=== PATIENT | male | born 1950 | race Caucasian/White ===

== ENCOUNTER → 2017-09-14 | Outpatient (CLI) | payer OTHER | LOC: CARD 10:48 | DX: I47.1 Supraventricular tachycardia (principal); I08.3 Combined rheumatic disorders of mitral, aortic and tricuspid valves | CPT/HCPCS: 93306 ==

== ENCOUNTER 2019-10-10 18:55 | Observation (INO) | payer MEDICARE, OTHER ==
[~2019-10-10] VITALS: Ht 172.7 cm; Wt 81.6 kg
[2019-10-10] MEDS ORDERED: methylPREDNISolone 125 MG (Solu-MEDROL) VIAL IV STA (19:22)
[2019-10-10] MEDS ORDERED: RT-ALBUTEROL/IPRATROPIUM 3 ML (DUONEB) VIAL INH ONE (19:30)
[2019-10-10] MEDS ORDERED: CEFEPIME INJECTION 1,000 MG in WATER (STERILE) FOR INJECTION 10 ML IV ONE (19:30)
[2019-10-10] MEDS ORDERED: VANCOMYCIN INJECTION 1,000 MG in NS (IVPB) 250 ML IV ONE (19:30)
[2019-10-10 19:32] LABS: BASOPHILS % (AUTO) 0 % (0-10); EOSINOPHILS # (AUTO) 0.5 10^3/uL (0.0-0.3); EOSINOPHILS % (AUTO) 4 % (0-10); HEMATOCRIT 41 % (40-54); LYMPHOCYTES # (AUTO) 2.1 X 10^3 (1.0-4.0); LYMPHOCYTES % (AUTO) 18 % (12-44); MEAN CORPUSCULAR HEMOGLOBIN 29 PG (25-34); MEAN CORPUSCULAR HGB CONC 31 G/DL (32-36); MEAN CORPUSCULAR VOLUME 93 FL (80-99); MEAN PLATELET VOLUME 9.1 FL (7.4-10.4); MONOCYTES # (AUTO) 0.9 X 10^3 (0.0-1.0); MONOCYTES % (AUTO) 8 % (0-12); NEUTROPHILS # (AUTO) 8.1 X 10^3 (1.8-7.8); NEUTROPHILS % (AUTO) 70 % (42-75); PLATELET COUNT 314 10^3/uL (130-400); RED CELL DISTRIBUTION WIDTH 14.9 % (10.0-14.5); WHITE BLOOD COUNT 11.7 10^3/uL (4.3-11.0)
[2019-10-10] MEDS ORDERED: NS IV 500 ML 500 ML IV ONE (19:34)
[2019-10-10] MEDS: NS IV 1000 ML 1,000 ML IV SCH ×2 (19:35→19:39)
[2019-10-10 19:44] LABS: ALANINE AMINOTRANSFERASE 17 U/L (0-55); ALBUMIN 4.6 GM/DL (3.2-4.5); ALKALINE PHOSPHATASE 76 U/L (40-136); BILIRUBIN,TOTAL 0.5 MG/DL (0.1-1.0); BUN/CREATININE RATIO 8; CARBON DIOXIDE 30 MMOL/L (21-32); CHLORIDE 97 MMOL/L (98-107); CREATININE SERUM 1.78 MG/DL (0.60-1.30); GFR ESTIMATED 38; GLUCOSE 126 MG/DL (70-105); POTASSIUM 3.7 MMOL/L (3.6-5.0); SODIUM 140 MMOL/L (135-145); TOTAL PROTEIN 8.1 GM/DL (6.4-8.2)
[2019-10-10 19:44] LABS: ABG BASE EXCESS 5.8 MMOL/L (-2.5-2.5); ABG OXYGEN SATURATION 100 % (94-100); ABG PCO2 35 MMHG (35-45); ABG PH 7.53 (7.37-7.43); ABG PO2 138 MMHG (79-93); ABG TCO2 30.1 MMOL/L (21.0-31.0); ALLENS TEST YES-POS; INSPIRED O2 3L; PATIENT TEMP 97.1; VENTILATOR NO
[2019-10-10 19:47] LABS: BILIRUBIN,URINE NEGATIVE (NEGATIVE); CLARITY,URINE CLEAR; COLOR,URINE YELLOW; GLUCOSE, URINE (UA) NEGATIVE (NEGATIVE); KETONES,URINE NEGATIVE (NEGATIVE); LEUKOCYTE ESTERASE ,URINE NEGATIVE (NEGATIVE); NITRITE,URINE NEGATIVE (NEGATIVE); PROTEIN,URINE NEGATIVE (NEGATIVE)
[2019-10-10 19:56] LABS: INR 1.1 (0.8-1.4); PROTHROMBIN TIME PATIENT 14.4 SEC (12.2-14.7)
--- NOTE | 2019-10-10 19:57 | Diagnostic Imaging Report ---
EXAMINATION: Portable chest. INDICATION: Shortness of breath. FINDINGS: There is enlargement of the cardiac silhouette. An implantable cardiac defibrillator device is present. There are no current findings to suggest pulmonary edema or failure. There appear to be chronic interstitial changes within the lungs as there is oligemia within the upper lung zones. There is no focal infiltrate or evidence of an effusion. There also appears to be diaphragmatic flattening suggesting air trapping. IMPRESSION: 1. Probable background features of COPD. 2. Enlarged cardiac silhouette without current failure. 3. No findings of an acute superimposed cardiopulmonary process. Dictated by: Dictated on workstation # [id number]
[2019-10-10 20:04] LABS: BACTERIA,URINE TRACE /HPF
--- NOTE | 2019-10-10 20:13 | ED Respiratory ---
General Chief Complaint: Respiratory Problems Stated Complaint: SOB,HAS HEART HISTORY Source: patient, spouse Exam Limitations: no limitations History of Present Illness Date Seen by Provider: Oct 10, 2019 Time Seen by Provider: 19:42 Initial Comments Patient presents to ER with his with chief complaint that he was feeling short of breath having some wheezing [facility] come [facility]. He says in the past she's had several stents placed and his never had any chest pain. He's had a little chest discomfort and shortness of breath Sunday, 5 days ago and had to take nitroglycerin and aspirin. He has not had any since then. He says typically does not have chest pain when he has ne eded stents placed in the past. He is not having any more cough than usual. He denies any fever. He does not use any Tylenol or ibuprofen. He is not having a productive cough. He has a history of COPD, heart failure with an reduced EF. He says he takes metolazone and Lasix 40 mg twice a day. About once a week she says his weight will start arising he will take an extra half or one tablet of the metolazone and Lasix and that will correct. His base weight is 172 pounds. Today this morning it was 178 pounds so he did take an extra half a tablet of metolazone. He's noticed increased swelling in his feet. He is occasionally dependent on oxygen outpatient about 1-2 L. Allergies and Home Medications Allergies Coded Allergies: Penicillins (Verified Allergy, Unknown, 10/10/19) acetaminophen (Verified Allergy, Unknown, 10/10/19) gabapentin (Verified Allergy, Unknown, 10/10/19) lisinopril (Verified Allergy, Unknown, 10/10/19) simvastatin (Verified Allergy, Unknown, 10/10/19) varenicline (Verified Allergy, Unknown, 10/10/19) Patient Home Medication List Home Medication List Reviewed: Yes Review of Systems Review of Systems Constitutional: No chills, No fever EENTM: No hearing loss, No ear pain Respiratory: cough; No phlegm; short of breath, wheezing Cardiovascular: No chest pain; edema, Hx of Intervention; No palpitations; vascular heart diseas Gastrointestinal: No abdominal pain, No nausea, No vomiting Genitourinary: No discharge, No dysuria Musculoskeletal: No back pain, No joint pain All Other Systems Reviewed Negative Unless Noted: Yes Past Eemndkg-Vatxfj-Irzptd Hx Patient Social History Alcohol Use: Denies Use Recreational Drug Use: No Smoking Status: Former Smoker Type Used: Cigarettes Former Smoker, Quit: Sep 21, 2015 Recent Foreign Travel: No Contact w/Someone Who Travel: No Physical Exam Vital Signs - First Documented 10/10/19 19:03 Temp 36.3 Pulse 101 Resp 22 B/P (MAP) 115/78 (90) Pulse Ox 92 O2 Delivery Nasal Cannula O2 Flow Rate 2.00 Capillary Refill : Height: '" Weight: lbs. oz. kg; BMI Method: General Appearance: WD/WN, mild distress Eyes: Bilateral Eye Normal Inspection, Bilateral Eye PERRL, Bilateral Eye EOMI HEENT: PERRL/EOMI, normal ENT inspection, TMs normal, pharynx normal Neck: non-tender, full range of motion, supple, normal inspection Respiratory: lungs clear, normal breath sounds, no respiratory distress, no accessory muscle use Cardiovascular: normal peripheral pulses, regular rate, rhythm, no edema Extremities: normal range of motion, non-tender, normal inspection, no pedal edema, no calf tenderness, normal capillary refill Neurologic/Psychiatric: alert, normal mood/affect, oriented x 3 Skin: normal color, warm/dry Focused Exam Lactate Level 10/10/19 19:48: Lactic Acid Level 1.27 Lactic Acid Level Laboratory Tests Test 10/10/19 19:48 Lactic Acid Level 1.27 MMOL/L (0.50-2.00) Progress/Results/Core Measures Suspected Sepsis SIRS Temperature: Pulse: Respiratory Rate: Laboratory Tests 10/10/19 19:10: White Blood Count 11.7H Blood Pressure / Mean: 10/10/19 19:48: Lactic Acid Level 1.27 Laboratory Tests 10/10/19 19:10: Creatinine 1.78H, INR Comment 1.1, Platelet Count 314, Total Bilirubin 0.5 Results/Orders Lab Results Laboratory Tests Test 10/10/19 19:10 10/10/19 19:30 10/10/19 19:33 10/10/19 19:48 Range/Units White Blood Count 11.7 H 4.3-11.0 10^3/uL Red Blood Count 4.46 4.35-5.85 10^6/uL Hemoglobin 13.0 L 13.3-17.7 G/DL Hematocrit 41 40-54 % Mean Corpuscular Volume 93 80-99 FL Mean Corpuscular Hemoglobin 29 25-34 PG Mean Corpuscular Hemoglobin Concent 31 L 32-36 G/DL Red Cell Distribution Width 14.9 H 10.0-14.5 % Platelet Count 314 130-400 10^3/uL Mean Platelet Volume 9.1 7.4-10.4 FL Neutrophils (%) (Auto) 70 42-75 % Lymphocytes (%) (Auto) 18 12-44 % Monocytes (%) (Auto) 8 0-12 % Eosinophils (%) (Auto) 4 0-10 % Basophils (%) (Auto) 0 0-10 % Neutrophils # (Auto) 8.1 H 1.8-7.8 X 10^3 Lymphocytes # (Auto) 2.1 1.0-4.0 X 10^3 Monocytes # (Auto) 0.9 0.0-1.0 X 10^3 Eosinophils # (Auto) 0.5 H 0.0-0.3 10^3/uL Basophils # (Auto) 0.0 0.0-0.1 10^3/uL Prothrombin Time 14.4 12.2-14.7 SEC INR Comment 1.1 0.8-1.4 Activated Partial Thromboplast Time 34 24-35 SEC Sodium Level 140 135-145 MMOL/L Potassium Level 3.7 3.6-5.0 MMOL/L Chloride Level 97 L 98-107 MMOL/L Carbon Dioxide Level 30 21-32 MMOL/L Anion Gap 13 5-14 MMOL/L Blood Urea Nitrogen 14 7-18 MG/DL Creatinine 1.78 H 0.60-1.30 MG/DL Estimat Glomerular Filtration Rate 38 BUN/Creatinine Ratio 8 Glucose Level 126 H 70-105 MG/DL Calcium Level 10.0 8.5-10.1 MG/DL Corrected Calcium 8.5-10.1 MG/DL Total Bilirubin 0.5 0.1-1.0 MG/DL Aspartate Amino Transf (AST/SGOT) 22 5-34 U/L Alanine Aminotransferase (ALT/SGPT) 17 0-55 U/L Alkaline Phosphatase 76 40-136 U/L Troponin I 0.039 H <0.028 NG/ML C-Reactive Protein High Sensitivity 0.46 0.00-0.50 MG/DL B-Type Natriuretic Peptide 205.2 H <100.0 PG/ML Total Protein 8.1 6.4-8.2 GM/DL Albumin 4.6 H 3.2-4.5 GM/DL Urine Color YELLOW Urine Clarity CLEAR Urine pH 6.0 5-9 Urine Specific Elsie 1.020 1.016-1.022 Urine Protein NEGATIVE NEGATIVE Urine Glucose (UA) NEGATIVE NEGATIVE Urine Ketones NEGATIVE NEGATIVE Urine Nitrite NEGATIVE NEGATIVE Urine Bilirubin NEGATIVE NEGATIVE Urine Urobilinogen 0.2 < = 1.0 MG/DL Urine Leukocyte Esterase NEGATIVE NEGATIVE Urine RBC (Auto) NEGATIVE NEGATIVE Urine RBC NONE /HPF Urine WBC NONE /HPF Urine Crystals NONE /LPF Urine Bacteria TRACE /HPF Urine Casts PRESENT /LPF Urine Hyaline Casts 2-5 H /LPF Urine Mucus NEGATIVE /LPF Urine Culture Indicated NO Blood Gas Puncture Site LEFT RADIAL Blood Gas Patient Temperature 97.1 Arterial Blood pH 7.53 H 7.37-7.43 Arterial Blood Partial Pressure CO2 35 35-45 MMHG Arterial Blood Partial Pressure O2 138 H 79-93 MMHG Arterial Blood HCO3 29 H 23-27 MMOL/L Arterial Blood Total CO2 30.1 21.0-31.0 MMOL/L Arterial Blood Oxygen Saturation 100 94-100 % Arterial Blood Base Excess 5.8 H -2.5-2.5 MMOL/L Earle Test YES-POS Blood Gas Ventilator Setting NO Blood Gas Inspired Oxygen 3L Lactic Acid Level 1.27 0.50-2.00 MMOL/L Micro Results Microbiology 10/10/19 Influenza Types A,B Antigen (SAGE) - Final, Complete My Orders Orders - GRANT CASTELLON Cbc With Automated Diff (10/10/19 19:22) Comprehensive Metabolic Panel (10/10/19 19:22) Blood Culture (10/10/19 19:22) Sputum Culture (10/10/19 19:22) Urinalysis (10/10/19 19:22) Urine Culture (10/10/19 19:22) Protime With Inr (10/10/19:) Partial Thromboplastin Time (10/10/19 19:22) Chest 1 View, Ap/Pa Only (10/10/19 19:22) Ed Iv/Invasive Line Start (10/10/19 19:22) Ed Iv/Invasive Line Start (10/10/19 19:22) Vital Signs Adult Sepsis Patie Q15M (10/10/19 19:22) O2 (10/10/19 19:22) Remove Rings In Anticipation O (10/10/19:) Lactic Acid Analyzer (10/10/19:) Influenza A And B Antigens (10/10/19:22) Ns Iv 1000 Ml (Sodium Chloride 0.9%) (10/10/19 19:22) Cefepime Injection (Maxipime Injection) (10/10/19 19:30) Vancomycin Injection (Vancomycin Injecti (10/10/19 19:30) Albuterol/Ipra Inhalation Soln (Duoneb I (10/10/19:30) Methylprednisolone Sod Succ (Solu-Medrol (10/10/19:) Svn Small Volume Nebulizer (10/10/19:) Arterial Blood Gas (10/10/19:22) Ed Iv/Invasive Line Start (10/10/19 19:34) Ns Iv 500 Ml (Sodium Chloride 0.9%) (10/10/19 19:34) BNP (10/10/19 19:35) Hs C Reactive Protein (10/10/19 20:05) Troponin I (10/10/19 20:05) Continuous Ekg Monitoring (10/10/19 20:05) Ekg Tracing (10/10/19 20:05) Aspirin Enteric Coated Tablet (Ecotrin T (10/10/19 20:30) Aspirin Chewable Tablet (Baby Aspirin Ch (10/10/19 20:45) Furosemide Injection (Lasix Injection) (10/10/19 20:45) Medications Given in ED Current Medications Medications Dose Ordered Sig/Mabel Route Start Time Stop Time Status Last Admin Dose Admin Albuterol/ Ipratropium 3 ml ONCE ONCE INH 10/10/19 19:30 10/10/19 19:31 DC 10/10/19 19:36 3 ML Aspirin 324 mg ONCE ONCE PO 10/10/19 20:45 10/10/19 20:46 DC 10/10/19 21:03 324 MG Cefepime HCl 1000 mg/Sterile Water 10 ml @ 200 mls/hr ONCE ONCE IV 10/10/19 19:30 10/10/19 19:32 DC 10/10/19 20:24 200 MLS/HR Furosemide 40 mg ONCE ONCE IVP 10/10/19 20:45 10/10/19 20:46 DC 10/10/19 21:03 40 MG Vancomycin HCl 1000 mg/Sodium Chloride 250 ml @ 250 mls/hr ONCE ONCE IV 10/10/19 19:30 10/10/19 20:29 DC 10/10/19 20:25 250 MLS/HR Vital Signs/I&O 10/10/19 10/10/19 19:03 19:03 Temp 36.3 Pulse 101 Resp 22 B/P (MAP) 115/78 (90) Pulse Ox 92 92 O2 Delivery Nasal Cannula Nasal Cannula O2 Flow Rate 2.00 2.00 Capillary Refill : Progress Note : Time: 20:15 Progress Note Patient was not in severe distress on arrival in a timely get him to talk to him he revealed that in the past his anginal symptoms have been just shortness of breath so we are expanding her search for the source of his symptoms with an EKG and troponin. We'll also get a CRP. Original differential was COPD, pneumonia, bronchitis, acute congestive heart failure. Congestive heart failure seems unlikely with a BNP of 200 and no pedal edema. He does have significant crackles heard on the right base. After the DuoNeb he is no longer wheezy. His ABG supports alkalosis and he may have been hypoxic before we put him on oxygen which is what contributed to his alkalosis. Cefepime and vancomycin weight-based dosing. Septic workup as his heart rate was above 90 and his respiratory rate was right around 20-22. He's had no subjective or objective findings of fever. Plan to give him 1500 cc of fluids which would be 20 mils per kilogram. ECG Initial ECG Impression Date: Oct 10, 2019 Initial ECG Impression Time: 20:07 Initial ECG Rate: 90 Initial ECG Rhythm: Normal Sinus Initial ECG Intervals: Normal Initial ECG Impression: Normal, Nonspecific Changes Initial ECG Comparisson: No Previous ECG Available Comment Atrial sensed ventricularly paced rhythm without ST elevation or depression. Diagnostic Imaging Diagonstic Imaging: Xray Plain Films/CT/US/NM/MRI: chest (1v) Comments [facility] [place], [place] NAME: LORI CASTREJON [facility] REC#: [id number] PT STATUS: REG ER : 1950 PHYSICIAN: GRANT CASTELLON MD ADMIT DATE: 10/10/19/ER Signed Date of Exam:10/10/19 CHEST 1 VIEW, AP/PA ONLY EXAMINATION: Portable chest. INDICATION: Shortness of breath. FINDINGS: There is enlargement of the cardiac silhouette. An implantable cardiac defibrillator device is present. There are no current findings to suggest pulmonary edema or failure. There appear to be chronic interstitial changes within the lungs as there is oligemia within the upper lung zones. There is no focal infiltrate or evidence of an effusion. There also appears to be diaphragmatic flattening suggesting air trapping. IMPRESSION: 1. Probable background features of COPD. 2. Enlarged cardiac silhouette without current failure. 3. No findings of an acute superimposed cardiopulmonary process. Dictated by: Dictated on workstation # [id number] Dict: 10/10/191946 Trans: 10/10/191956 PJE [id number] Interpreted by: GISELLE GONSALEZ MD Electronically signed by: GISELLE GONSALEZ MD 10/10/191956 Reviewed: Reviewed by Me Departure Communication (Admissions) Time/Spoke to Admitting Phy: 20:[address] Taylor and he agrees with holding antibiotics and he will reevaluate in the morning. He agrees with the plan laid out by Dr. Rose. Time/Spoke to Consulting Phy: 20:[address] Rose and he agrees with consulting on the patient and having them observed by medicine team. He says Dr. Beebe will see the patient in the morning. He would like Lasix 40 mg tonight, repeat chest x-ray labs troponin in the morning. Aspirin tonight. Impression Primary Impression: Atypical angina Additional Impression: Congestive heart failure Qualified Codes: I50.9 - Heart failure, unspecified Disposition: ADMITTED INPATIENT Condition: Stable Admissions Decision to Admit Reason: Admit from ER (General) Decision to Admit/Date: Oct 10, 2019 Time/Decision to Admit Time: 20:30 Departure-Patient Inst. Referrals: NO,LOCAL PHYSICIAN (PCP/Family) Primary Care Physician GRANT CASTELLON Oct 10, 2019 20:13
[2019-10-10] MEDS ORDERED: ASPIRIN E.C. 81 MG (ECOTRIN) TAB PO ONE (20:30)
[2019-10-10] MEDS ORDERED: VANCOMYCIN INJECTION 750 MG in NS (IVPB) 250 ML IV ONE (20:30)
[2019-10-10] MEDS ORDERED: FUROSEMIDE 40 MG/4 ML INJ (LASIX) IVP ONE (20:45)
[2019-10-10] MEDS ORDERED: ASPIRIN 81 MG CHEW (CHILDREN'S ASA) PO ONE (20:45)
[2019-10-10 22:10] VITALS: BP 111/61
[2019-10-10] MEDS ORDERED: ONDANSETRON 4 MG/2 ML (SDV) Z0FRAN IV PRN (22:30)
[2019-10-10] MEDS ORDERED: NITROGLYCERIN 0.4 MG SL TABS BTL 25'S SL PRN (22:30)
[2019-10-10] MEDS ORDERED: LORazepam INJ 2 MG/ML (ATIVAN) VIAL IV PRN (22:30)
[2019-10-10] MEDS ORDERED: morphine INJ 4 MG/ML 1 ML (VIAL/SYRINGE) IV PRN (22:30)
--- NOTE | 2019-10-10 22:35 | NUR ---
LORI CASTREJON admitted to room 431-1, with an admitting diagnosis of ATYPICAL ANGINA AND CHF EXACERBATION, on 10/10/19 from ED via , accompanied by .LORI CASTREJON introduced to surroundings, call light, bed controls, phone, TV, temperature control, lights, meal times, smoking policy, visitor policy, side rail policy, bathrooms and showers. Patient Rights given to patient in the handbook. LORI CASTREJON verbalizes understanding that [facility] is not responsible for the loss or damage to any personal effects or valuables that are kept in the patients posession during their hospitalization. LORI CASTREJON verbalizes understanding of Interdisciplinary Patient Education. Patient and/or family were informed about the Rapid Response Team and its purpose.
[2019-10-11] VITALS (8 sets, daily range): BP systolic 100–141; BP diastolic 56–73
[2019-10-11] MEDS ORDERED: PANT40TA3 PO (01:43)
[2019-10-11] MEDS ORDERED: GLIP5TAB13 PO (01:43)
[2019-10-11] MEDS ORDERED: MTP100TCR PO (01:43)
[2019-10-11] MEDS ORDERED: DOCU100C37 PO (01:43)
[2019-10-11] MEDS ORDERED: ISOS30TA3 PO (01:43)
[2019-10-11] MEDS ORDERED: FURO40TA4 PO (01:43)
[2019-10-11] MEDS ORDERED: FLUT16SP22 NS (01:43)
[2019-10-11] MEDS ORDERED: METO2.5T PO (01:43)
[2019-10-11] MEDS ORDERED: ALLO300T2 PO (01:43)
[2019-10-11] MEDS ORDERED: APIX2.5T PO (01:43)
[2019-10-11] MEDS ORDERED: LEVA0.3129 IH (01:43)
[2019-10-11] MEDS ORDERED: DOXA2TAB2 PO (01:43)
[2019-10-11] MEDS ORDERED: ROSU40TA23 PO (01:43)
[2019-10-11] MEDS ORDERED: CAPS42.513 TP (01:43)
[2019-10-11] MEDS ORDERED: NITR0.4T39 SL (01:43)
[2019-10-11] MEDS ORDERED: POLY17PO6 PO (01:43)
[2019-10-11] MEDS ORDERED: RT-ALBUTEROL/IPRATROPIUM 3 ML (DUONEB) VIAL INH PRN (02:30)
[2019-10-11 03:39] LABS: BASOPHILS % (AUTO) 0 % (0-10); EOSINOPHILS % (AUTO) 0 % (0-10); HEMATOCRIT 37 % (40-54); HEMOGLOBIN 11.8 G/DL (13.3-17.7); LYMPHOCYTES # (AUTO) 0.7 X 10^3 (1.0-4.0); LYMPHOCYTES % (AUTO) 6 % (12-44); MEAN CORPUSCULAR HEMOGLOBIN 29 PG (25-34); MEAN CORPUSCULAR HGB CONC 32 G/DL (32-36); MEAN CORPUSCULAR VOLUME 92 FL (80-99); MEAN PLATELET VOLUME 9.2 FL (7.4-10.4); MONOCYTES # (AUTO) 0.1 X 10^3 (0.0-1.0); MONOCYTES % (AUTO) 1 % (0-12); NEUTROPHILS # (AUTO) 11.2 X 10^3 (1.8-7.8); NEUTROPHILS % (AUTO) 94 % (42-75); PLATELET COUNT 267 10^3/uL (130-400); RED CELL DISTRIBUTION WIDTH 14.5 % (10.0-14.5); WHITE BLOOD COUNT 11.9 10^3/uL (4.3-11.0)
[2019-10-11 03:58] LABS: ALANINE AMINOTRANSFERASE 16 U/L (0-55); ALKALINE PHOSPHATASE 55 U/L (40-136); BILIRUBIN,TOTAL 0.4 MG/DL (0.1-1.0); BUN/CREATININE RATIO 10; CALCIUM 9.5 MG/DL (8.5-10.1); CARBON DIOXIDE 26 MMOL/L (21-32); CHLORIDE 97 MMOL/L (98-107); CHOLESTEROL 109 MG/DL (< 200); CREATININE SERUM 1.78 MG/DL (0.60-1.30); GFR ESTIMATED 38; GLUCOSE 186 MG/DL (70-105); HDL CHOLESTEROL 37 MG/DL (40-60); POTASSIUM 3.9 MMOL/L (3.6-5.0); SODIUM 138 MMOL/L (135-145); TRIGLYCERIDES 51 MG/DL (<150); VLDL CHOLESTEROL 10 MG/DL (5-40)
[2019-10-11] MEDS: inSUlin ASPART (NovoLOG) 1 UNIT/0.01 ML (CHARGE PER UNIT) SC SCH ×4 (07:19→20:48)
[2019-10-11] MEDS: RT-ALBUTEROL/IPRATROPIUM 3 ML (DUONEB) VIAL INH SCH ×4 (07:37→19:01)
--- NOTE | 2019-10-11 07:55 | Diagnostic Imaging Report ---
INDICATION: Congestive heart failure. TECHNIQUE: Single frontal view of the chest. COMPARISON: 10/10/2019 FINDINGS: There is mild cardiomegaly with mild central vascular congestion. Lung volumes are large. No focal consolidation is seen. There is a small right pleural effusion. No pneumothorax is seen. Automatic implantable cardiac defibrillator leads appear stable. IMPRESSION: 1. Mild cardiomegaly with central vascular congestion. 2. Small right pleural effusion. 3. Large lung volumes. Dictated by: Dictated on workstation # [id number]
[2019-10-11] MEDS: ENOXAPARIN 40 MG/0.4 ML (LOVENOX) SYR SC SCH ×2 (09:09→20:48)
[2019-10-11] MEDS: ASPIRIN E.C. 81 MG (ECOTRIN) TAB PO SCH (09:09)
[2019-10-11] MEDS ORDERED: predniSONE 20 MG TAB PO ONE (11:00)
[2019-10-11] MEDS ORDERED: MELATONIN 3 MG TABLET PO PRN (11:30)
[2019-10-11] MEDS ORDERED: ONDANSETRON 4 MG/2 ML (SDV) Z0FRAN IV PRN (11:30)
[2019-10-11] MEDS ORDERED: PATIENT MAY USE OWN MEDS, ALL PO SCH (11:30)
[2019-10-11] MEDS ORDERED: diphenhydrAMINE 25 MG TAB (BENADRYL) PO PRN (11:30)
[2019-10-11] MEDS ORDERED: ONDANSETRON 4 MG (ZOFRAN) ORAL DISSOLVE TAB PO PRN (11:30)
[2019-10-11] MEDS ORDERED: polyethylene glycoL POWDER 17 GM (MIRALAX) PACK PO PRN (11:30)
[2019-10-11] MEDS ORDERED: BISACODYL 10 MG SUPP (DULCOLAX) PR PRN (11:30)
[2019-10-11] MEDS ORDERED: ACETAMINOPHEN 325 MG TABLET PO PRN (11:30)
[2019-10-11] MEDS ORDERED: ANTACID SUSP 30 ML UDC (MYLANTA) PO PRN (11:30)
--- NOTE | 2019-10-11 11:41 | History & Physical-Hospitalist ---
History of Present Illness HPI/Chief Complaint Manny Funes is a 68-year-old male with past medical history of hypertension, diabetes, hyperlipidemia, chronic kidney disease,atrial fibrillation, coronary artery disease, GERD, heart failure with reduced ejection fraction, COPD, who presented with shortness of breath. He reports that a few days ago he was in the shower and he became extremely short of breath. His voice is hoarse and this is a change from his baseline. His brought him a nitroglycerin and an aspirin and his symptoms improved. He reports that he is having trouble walking across the room. He is unable to lie flat. He denies any chest pain. He says this is how he presented whenever he had stents placed in his heart in the past. He denies any fevers or chills. He denies any lightheadedness or dizziness. He denies any diaphoresis. He denies any cough. He denies any abdominal pain, nausea, or vomiting. He denies any diarrhea or constipation. He denies any dysuria. He has not been on any recent antibiotics. He did receive a course of the steroids about a month ago for bronchitis. Source: patient Exam Limitations: no limitations Date Seen 10/11/19 Time Seen by a Provider: 08:15 Attending Physician Christine Washington MD PCP No,Local Physician Referring Physician Date of Admission Oct 10, 2019 at 20:55 Home Medications & Allergies Home Medications Reviewed patient Home Medication Reconciliation performed by pharmacy medication reconciliations auto electrical technician and/or nursing. Patients Allergies have been reviewed. Allergies Allergies Coded Allergies Penicillins (Verified Allergy, Unknown, 10/10/19) acetaminophen (Verified Allergy, Unknown, 10/10/19) gabapentin (Verified Allergy, Unknown, 10/10/19) lisinopril (Verified Allergy, Unknown, 10/10/19) simvastatin (Verified Allergy, Unknown, 10/10/19) varenicline (Verified Allergy, Unknown, 10/10/19) Past Oltvlen-Lgabpf-Gafckp Hx Past Med/Social Hx: Reviewed Nursing Past Med/Soc Hx Patient Social History Alcohol Use: Denies Use Recreational Drug Use: No Smoking Status: Former Smoker Former Smoker, Quit: Sep 21, 2015 Type Used: Cigarettes Recent Foreign Travel: No Contact w/other who traveled: No Recent Hopitalizations: No Recent Infectious Disease Expo: No Immunizations Up To Date Date of Pneumonia Vaccine: Oct 10, 2015 Date of Influenza Vaccine: May 11, 2019 Seasonal Allergies Seasonal Allergies: No Past Medical History Surgeries: Orthopedic, Pacemaker, Tonsillectomy Cardiac: Chronic Edema/Swelling, Coronary Artery Disease, Hypertension Endocrine: Diabetes, Non-Insulin dep History of Blood Disorders: No Family History AIDS Review of Systems Constitutional: weakness EENTM: hoarseness Respiratory: dyspnea on exertion, orthopnea, short of breath Cardiovascular: no symptoms reported Gastrointestinal: no symptoms reported Genitourinary: no symptoms reported Musculoskeletal: no symptoms reported Skin: no symptoms reported Psychiatric/Neurological: No Symptoms Reported Physical Exam Physical Exam Vital Signs Vital Signs - First Documented 10/10/19 10/11/19 19:03 02:23 Temp 36.3 Pulse 101 Resp 22 B/P (MAP) 115/78 (90) Pulse Ox 92 O2 Delivery Nasal Cannula O2 Flow Rate 2.00 FiO2 28 Capillary Refill : Less Than 3 Seconds Height, Weight, BMI Height: '" Weight: lbs. oz. kg; 27.82 BMI Method: General Appearance: No Apparent Distress, Chronically ill Respiratory: No Respiratory Distress, Crackles, Decreased Breath Sounds, Other (wearing nasal cannula) Cardiovascular: Regular Rate, Rhythm, No Edema, No Murmur Gastrointestinal: Normal Bowel Sounds, Non Tender, Soft Extremity: Normal Inspection, Non Tender, No Pedal Edema Neurologic/Psychiatric: Alert, Oriented x3, No Motor/Sensory Deficits, Normal Mood/Affect Skin: Normal Color, Warm/Dry Results Results/Procedures Labs Laboratory Tests 10/10/19 19:10 10/11/19 03:26 Patient resulted labs reviewed. Imaging: Reviewed Imaging Report Assessment/Plan Admission Diagnosis acute respiratory failure with hypoxia Admission Status: Observation Assessment and Plan acute respiratory failure with hypoxia Acute on chronic heart failure with reduced ejection fraction small right pleural effusion COPD with acute exacerbation elevated troponin coronary artery disease Remains afebrile without leukocytosis Chest x-ray with small right pleural effusion troponin mildly elevated on admission, repeat negative Cardiology consulted, appreciate assistance continue Lasix continue aspirin and Lovenox Started on prednisone MAT protocol Wean oxygen as able to maintain oxygen saturations between 88-92 percent chronic kidney disease Creatinine 1.78, likely at baseline, no previous levels available continue to monitor HTN T2DM AFib HLD GERD Continue home meds DVT prophylaxis: Already receiving therapeutic anticoagulation Diagnosis/Problems Diagnosis/Problems (1) Acute respiratory failure with hypoxia Status: Acute (2) Acute on chronic congestive heart failure Status: Acute Qualifiers: Heart failure type: systolic Qualified Codes: I50.23 - Acute on chronic systolic (congestive) heart failure (3) Elevated troponin Status: Acute (4) COPD with acute exacerbation Status: Acute (5) CKD (chronic kidney disease) Status: Chronic Qualifiers: Chronic kidney disease stage: stage 3 (moderate) Qualified Codes: N18.3 - Chronic kidney disease, stage 3 (moderate) (6) HTN (hypertension) Status: Chronic Qualifiers: Hypertension type: essential hypertension Qualified Codes: I10 - Essential (primary) hypertension (7) HLD (hyperlipidemia) Status: Chronic (8) T2DM (type 2 diabetes mellitus) Status: Chronic Qualifiers: Diabetes mellitus meterman insulin use: without alf use (9) GERD (gastroesophageal reflux disease) Status: Chronic Qualifiers: Esophagitis presence: esophagitis presence not specified Qualified Codes: K21.9 - Gastro-esophageal reflux disease without esophagitis (10) Afib Status: Chronic Qualifiers: Atrial fibrillation type: paroxysmal Qualified Codes: I48.0 - Paroxysmal atrial fibrillation (11) CAD (coronary artery disease) Status: Chronic (12) Gout Status: Chronic Clinical Quality Measures DVT/VTE Risk/Contraindication: Risk Factor Score Per Nursin RFS Level Per Nursing on Admit: 4+=Very High CHRISTINE WASHINGTON MD Oct 11, 2019 11:41
[2019-10-11] MEDS ORDERED: BUDE10.26 IH (11:52)
[2019-10-11] MEDS ORDERED: POTA-51 PO (11:55)
[2019-10-11] MEDS ORDERED: meTOproloL SUCCINATE 50 MG (TOPROL XL) TAB PO ONE (12:00)
[2019-10-11] MEDS ORDERED: ISOSORBIDE MONONITRATE 30 MG (IMDUR) TAB PO ONE (12:00)
[2019-10-11] MEDS ORDERED: VIT D PO (12:01)
[2019-10-11] MEDS ORDERED: FERR324T4 PO (12:02)
[2019-10-11] MEDS ORDERED: FUROSEMIDE 40 MG/4 ML INJ (LASIX) ONE (14:05)
[2019-10-11] MEDS ORDERED: FUROSEMIDE 40 MG/4 ML INJ (LASIX) IVP ONE (14:15)
[2019-10-11] MEDS: DOCUSATE SODIUM 100 MG (COLACE) CAP PO SCH ×2 (14:44→20:48)
--- NOTE | 2019-10-11 15:03 | Consultation-Cardiology ---
HPI-Cardiology Cardiology Consultation: Date of Consultation 10/11/19 Time Seen by a Provider: 14:30 Date of Admission Attending Physician Christine Taylor MD Admitting Physician No,Local Physician Consulting Physician JOHANNA HUDSON MD, M, FACP, FACC, FSCAI, CCDS HPI: Chief Complaint: CC: Shortness of breath HPI 68 yo man with card history (see below) who presents with increasing shortness of breath for several weeks. Saw his doctor recently, says was told had bronchitis and was treated but symptoms did not improve, came to ER yesterday and was admitted to Dr Taylor. Does not report cp or palp or syncope. Notes gen malaise and weakness. Denies fever or chills. Has had mild, dry cough at times Review of Systems-Cardiology Review of Systems Constitutional: As described under HPI Eyes: No vision change Ears/Nose/Throat: No ear discharge, No nasal drainage, No recent hearing loss Respiratory: As described under HPI Cardiovascular: As described under HPI Gastrointestinal: No constipation, No diarrhea, No nausea, No vomiting Genitourinary: No dysuria, No hematuria, No urine frequency changes, No urine coloration changes Musculoskeletal: back pain (chronic) Skin: No rash, No ulcerations Psychiatric/Neurological: No seizure, No focal weakness, No syncope Hematologic: No bleeding abnormalities All Other Systems Reviewed Negative Unless Noted: Yes [id number] Hx Patient Social History Alcohol Use: Denies Use Recreational Drug Use: No Smoking Status: Former Smoker Type Used: Cigarettes Recent Foreign Travel: No Recent Infectious Disease Expo: No Hospitalization with Isolation: Denies Immunizations Up To Date Date of Pneumonia Vaccine: Oct 10, 2015 Date of Influenza Vaccine: May 11, 2019 Past Medical History PMH As described under Assessment. Family Medical History Family Medical History: Does not report fam h/o early CAD or SCD Family History: AIDS Allergies and Home Medications Allergies Coded Allergies: Penicillins (Verified Allergy, Unknown, 10/10/19) acetaminophen (Verified Allergy, Unknown, 10/10/19) gabapentin (Verified Allergy, Unknown, 10/10/19) lisinopril (Verified Allergy, Unknown, 10/10/19) simvastatin (Verified Allergy, Unknown, 10/10/19) varenicline (Verified Allergy, Unknown, 10/10/19) Home Medications Allopurinol 300 Mg Tablet, 300 MG PO DAILY, (Reported) Apixaban 2.5 Mg Tablet, 2.5 MG PO BID, (Reported) Budesonide/Formoterol Fumarate 10.2 Gm Hfa.aer.ad, 10.2 GM IH BID Prescribed by: FUNMI BAE on 10/11/19 1152 Capsaicin 42.5 Gm Cream..g., 1 APPLIC TP PRN, (Reported) APPLY TO AFFECTED AREA TWO TIMES A DAY NEEDED FOR PAIN Docusate Sodium 100 Mg Capsule, 100 MG PO BID, (Reported) Doxazosin Mesylate 2 Mg Tablet, 2 MG PO HS, (Reported) Ferrous Sulfate 324 Mg Tablet.dr, 324 MG PO DAILY Prescribed by: FUNMI BAE on 10/11/19 1202 Fluticasone Propionate 16 Gm [place].susp, 2 SPRAYS NS DAILY, (Reported) 2 SPRAYS IN EACH NOSTRIL ONCE A DAY FOR SINUS DRAINAGE/ALLERGIES Furosemide 40 Mg Tablet, 40 MG PO BID, (Reported) Glipizide 5 Mg Tablet, 2.5 MG PO DAILY, (Reported) Isosorbide Mononitrate 30 Mg Tab.er.24h, 30 MG PO DAILY, (Reported) Levalbuterol HCl 0.31 Mg/3 Ml Vial.neb, 0.42 MG IH PRN, (Reported) Metolazone 2.5 Mg Tablet, 2.5 MG PO WEEK, (Reported) Metoprolol Succinate 100 Mg Tab.er.24h, 150 MG PO DAILY, (Reported) Nitroglycerin 0.4 Mg Tab.subl, 0.4 MG SL UD PRN for CHEST PAIN, (Reported) DISSOLVE ONE TABLET UNDER THE TONGUE ONCE NEEDED FOR CHEST PAIN-MAY TAKE 2 ADDITIONAL DOSES. 5 MINUTES APART. Pantoprazole Sodium 40 Mg Tablet.dr, 40 MG PO DAILY, (Reported) Potassium Chloride 20 Meq Tablet.er, 20 MEQ PO BID Prescribed by: FUNMI BAE on 10/11/19 1155 Rosuvastatin Calcium 40 Mg Tablet, 40 MG PO HS, (Reported) [Vit D] , 1,000 PO DAILY Prescribed by: FUNMI BAE on 10/11/19 1201 Patient Home Medication List Home Medication List Reviewed: Yes Physical Exam-Cardiology Physical Exam Vital Signs/I&O 10/11/19 10/11/19 10/11/19 10/11/19 03:57 07:00 07:37 07:55 Temp 36.2 36.7 Pulse 88 88 103 Resp 20 20 B/P (MAP) 114/60 (78) 141/73 (95) Pulse Ox 97 94 95 O2 Delivery Nasal Cannula Nasal Cannula Nasal Cannula O2 Flow Rate 2.00 2.00 2.00 10/11/19 10/11/19 10/11/19 10/11/19 08:00 11:08 12:10 12:30 Temp 36.8 Pulse 113 104 Resp 20 B/P (MAP) 116/56 (76) Pulse Ox 96 98 O2 Delivery Nasal Cannula Nasal Cannula Nasal Cannula O2 Flow Rate 2.00 2.00 2.00 10/11/19 00:00 Intake Total 835 ml Balance 835 ml Capillary Refill : Less Than 3 Seconds Constitutional: AAO x 3, well-developed, well-nourished HEENT: PERRL, EOMI; No xanthelasmas are seen Neck: carotid pulses are 2 + bilaterally, with good upstrokes Respiratory: No accessory muscle use; other (fair to good air entry, diminished at the bases; scattered rhonchi over large airways) Cardiovascular: regular rate-rhythm, S1 and S2, systolic murmur (soft OTTO at card base) Gastrointestinal: No tender, No guarding, No rebound; audible bowel sounds Extremities: No clubbing, No cyanosis, No significant edema Neurologic/Psychiatric: oriented x 3, other ( moves all limbs equally) Skin: No rash on exposed areas, No ulcerations on exposed areas Data Review Labs Laboratory Tests 10/10/19 19:10: White Blood Count 11.7H, Red Blood Count 4.46, Hemoglobin 13.0L, Hematocrit 41, Mean Corpuscular Volume 93, Mean Corpuscular Hemoglobin 29, Mean Corpuscular Hemoglobin Concent 31L, Red Cell Distribution Width 14.9H, Platelet Count 314, Mean Platelet Volume 9.1, Neutrophils (%) (Auto) 70, Lymphocytes (%) (Auto) 18, Monocytes (%) (Auto) 8, Eosinophils (%) (Auto) 4, Basophils (%) (Auto) 0, Neutrophils # (Auto) 8.1H, Lymphocytes # (Auto) 2.1, Monocytes # (Auto) 0.9, Eosinophils # (Auto) 0.5H, Basophils # (Auto) 0.0, Prothrombin Time 14.4, INR Co mment 1.1, Activated Partial Thromboplast Time 34, Sodium Level 140, Potassium Level 3.7, Chloride Level 97L, Carbon Dioxide Level 30, Anion Gap 13, Blood Urea Nitrogen 14, Creatinine 1.78H, Estimat Glomerular Filtration Rate 38, BUN/Creatinine Ratio 8, Glucose Level 126H, Calcium Level 10.0, Corrected Calcium , Total Bilirubin 0.5, Aspartate Amino Transf (AST/SGOT) 22, Alanine Aminotransferase (ALT/SGPT) 17, Alkaline Phosphatase 76, Troponin I 0.039H, C- Reactive Protein High Sensitivity 0.46, B-Type Natriuretic Peptide 205.2H, Total Protein 8.1, Albumin 4.6H 10/10/19 19:30: Urine Color YELLOW, Urine Clarity CLEAR, Urine pH 6.0, Urine Specific [place] 1.020, Urine Protein NEGATIVE, Urine Glucose (UA) NEGATIVE, Urine Ketones NEGATIVE, Urine Nitrite NEGATIVE, Urine Bilirubin NEGATIVE, Urine Urobilinogen 0.2, Urine Leukocyte Esterase NEGATIVE, Urine RBC (Auto) NEGATIVE, Urine RBC NONE, Urine WBC NONE, Urine Crystals NONE, Urine Bacteria TRACE, Urine Casts PRESENT, Urine Hyaline Casts 2-5H, Urine Mucus NEGATIVE, Urine Culture Indicated NO 10/10/19 19:33: Blood Gas Puncture Site LEFT RADIAL, Blood Gas Patient Temperature 97.1, Arterial Blood pH 7.53H, Arterial Blood Partial Pressure CO2 35, Arterial Blood Partial Pressure O2 138H, Arterial Blood HCO3 29H, Arterial Blood Total CO2 30.1, Arterial Blood Oxygen Saturation 100, Arterial Blood Base Excess 5.8H, Earle Test YES-POS, Blood Gas Ventilator Setting NO, Blood Gas Inspired Oxygen 3L 10/10/19 19:48: Lactic Acid Level 1.27 10/11/19 03:26: White Blood Count 11.9H, Red Blood Count 4.03L, Hemoglobin 11.8L, Hematocrit 37L , Mean Corpuscular Volume 92, Mean Corpuscular Hemoglobin 29, Mean Corpuscular Hemoglobin Concent 32, Red Cell Distribution Width 14.5, Platelet Count 267, Mean Platelet Volume 9.2, Neutrophils (%) (Auto) 94H, Lymphocytes (%) (Auto) 6L, Monocytes (%) (Auto) 1, Eosinophils (%) (Auto) 0, Basophils (%) (Auto) 0, Neutrophils # (Auto) 11.2H, Lymphocytes # (Auto) 0.7L, Monocytes # (Auto) 0.1, Eosinophils # (Auto) 0.0, Basophils # (Auto) 0.0, Sodium Level 138, Potassium [place] 3.9, Chloride Level 97L, Carbon Dioxide Level 26, Anion Gap 15H, Blood Urea Nitrogen 17, Creatinine 1.78H, Estimat Glomerular Filtration Rate 38, BUN/Creatinine Ratio 10, Glucose Level 186H, Calcium Level 9.5, Corrected Calcium 9.5, Total Bilirubin 0.4, Aspartate Amino Transf (AST/SGOT) 17, Alanine Aminotransferase (ALT/SGPT) 16, Alkaline Phosphatase 55, Troponin I < 0.028, B- Type Natriuretic Peptide 168.4H, Total Protein 7.0, Albumin 4.0, Triglycerides Level 51, Cholesterol Level 109, LDL Cholesterol Direct 62, VLDL Cholesterol 10, HDL Cholesterol 37L 10/11/19 05:24: Glucometer 226H 10/11/19 10:43: Glucometer 164H Microbiology 10/10/19 Influenza Types A,B Antigen (SAGE) - Final, Complete Laboratory Tests 10/10/19 19:10 10/11/19 03:26 A/P-Cardiology Assessment/Admission Diagnosis Exertional shortness of breath of unclear etiology: suspect decomp CHF and lower resp tract infection Ac on ch systolic CHF. Echo of 2018: LVEF 20-25%, mod MR & AI, mild to mod TR, PASP 30 mmHg H/o PAF H/o pacemaker, dual chamber, [facility] , [facility] He has f/u at the pacemaker there, as well CAD. Reports cor stents on two occasions. Carries a card that states that LAD was stented in 2011 (he says that was the last cor stent) DM II CKD 3-4, probably due to diabetic nephropathy Discussion and Recomendations * iv diuretics * Continue bb, ASA, apixaban * Monitor labs * Echo * Discussed with Dr Taylor on the phone Clinical Quality Measures DVT/VTE Risk/Contraindication: Risk Factor Score Per Nursin RFS Level Per Nursing on Admit: 4+=Very High JOHANNA HUDSON MD FACP [facility] Oct 11, 2019 15:03
[2019-10-11] MEDS ORDERED: glipiZIDE 5 MG (GLUCOTROL) TAB PO SCH (15:30)
[2019-10-11] MEDS: glipiZIDE 5 MG (GLUCOTROL) TAB PO SCH (16:15)
[2019-10-11] MEDS: FUROSEMIDE 40 MG/4 ML INJ (LASIX) IVP SCH (19:04)
[2019-10-11] MEDS: APIXABAN 2.5 MG (ELIQUIS) TABLET PO SCH (20:48)
[2019-10-11] MEDS ORDERED: KCL 20 MEQ TAB (K-DUR) PO SCH (21:00)
[2019-10-11] MEDS ORDERED: doxAzosin 2 MG (CARDURA) TAB PO SCH (21:00)
[2019-10-11] MEDS ORDERED: ROSUVASTATIN 20 MG (CRESTOR) TABLET PO SCH (21:00)
[2019-10-11] MEDS ORDERED: DOCUSATE SODIUM 100 MG (COLACE) CAP PO SCH (21:00)
[2019-10-12 04:32] VITALS: BP 98/58
[2019-10-12 04:40] LABS: HEMOGLOBIN 11.2 G/DL (13.3-17.7); MEAN PLATELET VOLUME 9.5 FL (7.4-10.4); RED CELL DISTRIBUTION WIDTH 14.5 % (10.0-14.5); WHITE BLOOD COUNT 18.4 10^3/uL (4.3-11.0)
[2019-10-12 04:44] VITALS: BP 120/65
[2019-10-12 05:02] LABS: BILIRUBIN,TOTAL 0.3 MG/DL (0.1-1.0); CALCIUM 9.3 MG/DL (8.5-10.1); CREATININE SERUM 1.88 MG/DL (0.60-1.30); POTASSIUM 3.7 MMOL/L (3.6-5.0); TOTAL PROTEIN 6.8 GM/DL (6.4-8.2)
[2019-10-12] MEDS ORDERED: meTOproloL SUCCINATE 50 MG (TOPROL XL) TAB PO SCH (06:00)
[2019-10-12] MEDS ORDERED: predniSONE 20 MG TAB PO SCH (06:00)
[2019-10-12] MEDS ORDERED: ALLOPURINOL 300 MG (ZYLOPRIM) TAB PO SCH (06:00)
[2019-10-12] MEDS ORDERED: ISOSORBIDE MONONITRATE 30 MG (IMDUR) TAB PO SCH (06:00)
[2019-10-12] MEDS: RT-ALBUTEROL/IPRATROPIUM 3 ML (DUONEB) VIAL INH SCH ×2 (06:28→10:45)
[2019-10-12 06:29] VITALS: BP 115/62
[2019-10-12] MEDS: glipiZIDE 5 MG (GLUCOTROL) TAB PO SCH (06:31)
[2019-10-12] MEDS: inSUlin ASPART (NovoLOG) 1 UNIT/0.01 ML (CHARGE PER UNIT) SC SCH ×2 (06:32→11:00)
[2019-10-12] MEDS: FUROSEMIDE 40 MG/4 ML INJ (LASIX) IVP SCH (06:32)
[2019-10-12] MEDS: DOCUSATE SODIUM 100 MG (COLACE) CAP PO SCH (06:43)
[2019-10-12 08:00] VITALS: BP 138/92
[2019-10-12] MEDS ORDERED: glipiZIDE 5 MG (GLUCOTROL) TAB PO SCH (09:00)
--- NOTE | 2019-10-12 09:02 | Progress Note - Cardiology ---
Cardiology SOAP Progress Note Subjective: Shortness of breath better. Says breathing treatments help more than anything else No cp or palp or syncope Gen malaise No focal weakness No n/v/d Objective: I&O/Vital Signs 10/11/19 10/12/19 10/12/19 10/12/19 23:56 01:00 04:32 04:44 Temp 36.8 37.1 Pulse 98 103 100 99 Resp 18 20 B/P (MAP) 100/67 (78) 98/58 (71) 120/65 (83) Pulse Ox 95 97 O2 Delivery Nasal Cannula Nasal Cannula O2 Flow Rate 2.00 2.00 10/12/19 10/12/19 10/12/19 10/12/19 06:29 06:29 07:00 08:00 Temp 36.4 Pulse 92 105 101 Resp 15 B/P (MAP) 115/62 (79) 138/92 (107) Pulse Ox 96 93 O2 Delivery Nasal Cannula Nasal Cannula O2 Flow Rate 2.00 2.00 10/12/19 00:00 Intake Total 770 ml Output Total 1625 ml Balance -855 ml Constitutional: AAO x 3, well-developed, well-nourished Respiratory: No accessory muscle use; other (fair to good air entry, diminished at the bases; scattered rhonchi over large airways) Cardiovascular: regular rate-rhythm, S1 and S2, systolic murmur (soft OTTO at c bear base) Gastrointestional: No tender, No guarding, No rebound; audible bowel sounds Extremities: No clubbing, No cyanosis, No significant edema Neurologic/Psychiatric: oriented x 3, other ( moves all limbs equally) Skin: No rash on exposed areas, No ulcerations on exposed areas Results/Procedures: Labs Laboratory Tests 10/11/19 10:43: Glucometer 164H 10/11/19 16:10: Glucometer 177H 10/11/19 20:16: Glucometer 213H 10/12/19 04:09: White Blood Count 18.4H, Red Blood Count 3.85L, Hemoglobin 11.2L, Hematocrit 35L , Mean Corpuscular Volume 92, Mean Corpuscular Hemoglobin 29, Mean Corpuscular Hemoglobin Concent 32, Red Cell Distribution Width 14.5, Platelet Count 293, Mean Platelet Volume 9.5, Sodium Level 139, Potassium Level 3.7, Chloride Level 94L, Carbon Dioxide Level 30, Anion Gap 15H, Blood Urea Nitrogen 30H, Creatinine 1.88H, Estimat Glomerular Filtration Rate 36, BUN/Creatinine Ratio 16, Glucose Level 113H, Calcium Level 9.3, Corrected Calcium 9.3, Total Bilirubin 0.3, Aspartate Amino Transf (AST/SGOT) 16, Alanine Aminotransferase (ALT/SGPT) 17, Alkaline Phosphatase 52, Total Protein 6.8, Albumin 4.0 10/12/19 05:24: Glucometer 115H Microbiology 10/10/19 Blood Culture - Preliminary, Resulted No growth 10/10/19 Urine Culture - Final, Complete NO GROWTH 10/10/19 Influenza Types A,B Antigen (SAGE) - Final, Complete Laboratory Tests 10/10/19 19:10 10/11/19 03:26 10/12/19 04:09 A/P: Assessment: Exertional shortness of breath, probably multifactorial: suspect decomp CHF and lower resp tract infection Ac on ch systolic CHF. 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 He has had device f/u there, as well CAD. Reports cor stents on two occasions. Carries a card that states that LAD was stented in 2011 (he says that was the last cor stent) DM II CKD 3-4, probably due to diabetic nephropathy Ac renal insuff, likely due to vol depletion due to diuretics Plan: * Reduce iv diuretics because of labs indicating pre-renal azotemia superimposed on CKD 3-4 * Continue bb, ASA, apixaban * Monitor labs * Echo * Dr Taylor managing LRI and leucocytosis JOHANNA HUDSON MD FACP FAC CCDS Oct 12, 2019 09:02
[2019-10-12] MEDS ORDERED: KCL 10 MEQ TAB (MICRO K) PO ONE (09:15)
[2019-10-12] MEDS: ASPIRIN E.C. 81 MG (ECOTRIN) TAB PO SCH (10:12)
[2019-10-12] MEDS: APIXABAN 2.5 MG (ELIQUIS) TABLET PO SCH (10:12)
[2019-10-12] MEDS ORDERED: PRED10TA22 PO (10:18)
--- NOTE | 2019-10-12 11:53 | Discharge Summary ---
Discharge Summary Hospital Course Problems/Dx: (1) Acute respiratory failure with hypoxia Status: Acute (2) Acute on chronic congestive heart failure Status: Acute Qualifiers: Qualified Codes: I50.23 - Acute on chronic systolic (congestive) heart failure (3) Elevated troponin Status: Acute (4) COPD with acute exacerbation Status: Acute (5) CKD (chronic kidney disease) Status: Chronic Qualifiers: Qualified Codes: N18.3 - Chronic kidney disease, stage 3 (moderate) (6) HTN (hypertension) Status: Chronic Qualifiers: Qualified Codes: I10 - Essential (primary) hypertension (7) HLD (hyperlipidemia) Status: Chronic (8) T2DM (type 2 diabetes mellitus) Status: Chronic Qualifiers: (9) GERD (gastroesophageal reflux disease) Status: Chronic Qualifiers: Qualified Codes: K21.9 - Gastro-esophageal reflux disease without esophagitis (10) Afib Status: Chronic Qualifiers: Qualified Codes: I48.0 - Paroxysmal atrial fibrillation (11) CAD (coronary artery disease) Status: Chronic (12) Gout Status: Chronic Hospital Course Date of Admission: Oct 10, 2019 at 20:55 Admission Diagnosis : acute on chronic respiratory failure with hypoxia Family Physician/Provider: Terri Kaminski Physician Date of Discharge: 10/12/19 Discharge Diagnosis: COPD with acute exacerbation, acute on chronic heart failure with reduced ejection fraction Hospital Course: Manny Funes is a 68-year-old male with multiple comorbidities including COPD and heart failure with reduced ejection fraction who presented with shortness of breath. He was found to have a COPD exacerbation and was treated with nebulizers and steroids. He was given an course of the steroids to taper as an outpatient. He was also treated with IV diuresis while inpatient. He was continued on his diuretics on discharge. He wears oxygen chronically and was at his baseline on discharge. He should call his primary care physician tomorrow to set up a follow-up this week. Labs and Pending Lab Test: Laboratory Tests 10/11/19 16:10: Glucometer 177H 10/11/19 20:16: Glucometer 213H 10/12/19 04:09: White Blood Count 18.4H, Red Blood Count 3.85L, Hemoglobin 11.2L, Hematocrit 35L , Mean Corpuscular Volume 92, Mean Corpuscular Hemoglobin 29, Mean Corpuscular Hemoglobin Concent 32, Red Cell Distribution Width 14.5, Platelet Count 293, Mean Platelet Volume 9.5, Sodium Level 139, Potassium Level 3.7, Chloride Level 94L, Carbon Dioxide Level 30, Anion Gap 15H, Blood Urea Nitrogen 30H, Creatinine 1.88H, Estimat Glomerular Filtration Rate 36, BUN/Creatinine Ratio 16, Glucose Level 113H, Calcium Level 9.3, Corrected Calcium 9.3, Total Bilirubin 0.3, Aspartate Amino Transf (AST/SGOT) 16, Alanine Aminotransferase (ALT/SGPT) 17, Alkaline Phosphatase 52, Total Protein 6.8, Albumin 4.0 10/12/19 05:24: Glucometer 115H Microbiology 10/10/19 Blood Culture - Preliminary, Resulted No growth 10/10/19 Urine Culture - Final, Complete NO GROWTH 10/10/19 Influenza Types A,B Antigen (SAGE) - Final, Complete Home Meds Active Prednisone 10 Mg Tab.ds.pk 10 Mg PO DAILY Take 6 tabs(60mg)daily,decrease by 1 tab(10mg)every other day. Ferrous Sulfate 324 Mg Tablet.dr 324 Mg PO DAILY [Vit D] 1,000 PO DAILY Potassium Chloride 20 Meq Tablet.er 20 Meq PO BID Budesonide-Formoterol 160-4.5 (Budesonide/Formoterol Fumarate) 10.2 Gm Hfa.aer.ad 10.2 Gm IH BID Reported Levalbuterol HCl 0.31 Mg/3 Ml Vial.neb 0.42 Mg IH PRN Fluticasone Propionate 16 Gm [place].susp 2 Sprays NS DAILY 2 SPRAYS IN EACH NOSTRIL ONCE A DAY FOR SINUS DRAINAGE/ALLERGIES Allopurinol 300 Mg Tablet 300 Mg PO DAILY Glipizide 5 Mg Tablet 2.5 Mg PO DAILY Pantoprazole Sodium 40 Mg Tablet.dr 40 Mg PO DAILY Docusate Sodium 100 Mg Capsule 100 Mg PO BID Capsaicin 42.5 Gm Cream..g. 1 Applic TP PRN APPLY TO AFFECTED AREA TWO TIMES A DAY NEEDED FOR PAIN Nitroglycerin 0.4 Mg Tab.subl 0.4 Mg SL UD PRN DISSOLVE ONE TABLET UNDER THE TONGUE ONCE NEEDED FOR CHEST PAIN-MAY TAKE 2 ADDITIONAL DOSES. 5 MINUTES APART. Isosorbide Mononitrate ER (Isosorbide Mononitrate) 30 Mg Tab.er.24h 30 Mg PO DAILY Rosuvastatin Calcium 40 Mg Tablet 40 Mg PO HS Metolazone 2.5 Mg Tablet 2.5 Mg PO WEEK Furosemide 40 Mg Tablet 40 Mg PO BID Doxazosin Mesylate 2 Mg Tablet 2 Mg PO HS Metoprolol Succinate 100 Mg Tab.er.24h 150 Mg PO DAILY Eliquis (Apixaban) 2.5 Mg Tablet 2.5 Mg PO BID Assessment/Pt Instructions take medications as prescribed. Complete your taper of steroids. Follow-up with your primary care physician. Discharge Planning: <30 minutes discharge planning Discharge Instructions Discharge Diet: Low Sodium Diet Activity as Tolerated: Yes Consultations Cardiology Discharge Physical Examination Vital Signs Vital Signs Date Time Temp Pulse Resp B/P (MAP) Pulse Ox O2 Delivery O2 Flow Rate FiO2 10/12/19 10:45 95 Nasal Cannula 2.00 10/12/19 08:00 36.4 101 15 138/92 (107) 10/11/19 02:23 28 General Appearance: No Apparent Distress, Chronically ill Respiratory: No Respiratory Distress, Wheezing Cardiovascular: Regular Rate, Rhythm, No Edema, No Murmur Gastrointestinal: Normal Bowel Sounds, Non Tender, Soft Extremity: Normal Inspection, Non Tender, No Pedal Edema Skin: Normal Color, Warm/Dry Neurologic/Psychiatric: Alert, Oriented x3, No Motor/Sensory Deficits, Normal Mood/Affect Allergies: Coded Allergies: Penicillins (Verified Allergy, Unknown, 10/10/19) acetaminophen (Verified Allergy, Unknown, 10/10/19) gabapentin (Verified Allergy, Unknown, 10/10/19) lisinopril (Verified Allergy, Unknown, 10/10/19) simvastatin (Verified Allergy, Unknown, 10/10/19) varenicline (Verified Allergy, Unknown, 10/10/19) Discharge Summary Date of Admission Oct 10, 2019 at 20:55 Date of Discharge Discharge Date: Oct 12, 2019 Discharge Time: 09:40 Admission Diagnosis acute respiratory failure with hypoxia Consults/Procedures Consulations cardiology Discharge Diagnosis acute on chronic respiratory failure with hypoxia due to COPD exacerbation and acute on chronic heart failure with reduced ejection fraction (1) Acute respiratory failure with hypoxia Status: Acute (2) Acute on chronic congestive heart failure Status: Acute Qualifiers: Qualified Codes: I50.23 - Acute on chronic systolic (congestive) heart failure (3) Elevated troponin Status: Acute (4) COPD with acute exacerbation Status: Acute (5) CKD (chronic kidney disease) Status: Chronic Qualifiers: Qualified Codes: N18.3 - Chronic kidney disease, stage 3 (moderate) (6) HTN (hypertension) Status: Chronic Qualifiers: Qualified Codes: I10 - Essential (primary) hypertension (7) HLD (hyperlipidemia) Status: Chronic (8) T2DM (type 2 diabetes mellitus) Status: Chronic Qualifiers: (9) GERD (gastroesophageal reflux disease) Status: Chronic Qualifiers: Qualified Codes: K21.9 - Gastro-esophageal reflux disease without esophagitis (10) Afib Status: Chronic Qualifiers: Qualified Codes: I48.0 - Paroxysmal atrial fibrillation (11) CAD (coronary artery disease) Status: Chronic (12) Gout Status: Chronic Clinical Quality Measures DVT/VTE Risk/Contraindication: Risk Factor Score Per Nursin RFS Level Per Nursing on Admit: 4+=Very High PHUC W[place] MD Oct 12, 2019 11:53
[2019-10-12 12:00] VITALS: BP 123/74
--- NOTE | 2019-10-12 13:18 | NUR ---
PATIENT PLACED ON ROOM AIR SAT DROPPED TO 88% EXERCISE 2 MIN. SAT DROPPED 86% PLACED ON 02 AT 2L/M SAT CAME BACK UP TO 90% RECOMMEND 2-4 L AT REST AND 3-6 L WITH EXERCISE. Addendum: 10/12/19 at 1319 by NOHEMY BARTLETT RT Amended: Links added.
[2019-10-12 14:00] VITALS: BP 123/74
--- NOTE | 2019-10-12 14:00 | NUR ---
LORI CASTREJON demonstrates understanding of discharge instructions and accurately returns instructions upon questioning. Copy of Post-Discharge Instructions given to PT. LORI CASTREJON is able to manage continuing needs after discharge. Patients belongings returned to PT. Patient discharged from 431-1 on 10/12/19 at 1400 . LORI CASTREJON left floor via W/C, accompanied by STAFF AND PER AUTO.
[2019-10-13] MEDS ORDERED: FUROSEMIDE 40 MG/4 ML INJ (LASIX) IVP SCH (09:00)
[2019-10-13] MEDS ORDERED: KCL 10 MEQ TAB (MICRO K) PO SCH (09:00)
== END 2019-10-12 14:00 | disposition home or self-care (01) ==
LOC: EDUNIT# 18:55 → ER 18:56 → 4TH 20:55
PROVIDERS: ADMIT Internal Medicine; ATTEND Internal Medicine
DX: J44.1 Chronic obstructive pulmonary disease with (acute) exacerbation (principal); I13.0 Hypertensive heart and chronic kidney disease with heart failure and stage 1 through stage 4 chronic kidney disease, or unspecified chronic kidney disease; I50.23 Acute on chronic systolic (congestive) heart failure; N18.3 Chronic kidney disease, stage 3 (moderate); J96.01 Acute respiratory failure with hypoxia; E78.5 Hyperlipidemia, unspecified; E11.9 Type 2 diabetes mellitus without complications; K21.9 Gastro-esophageal reflux disease without esophagitis; I48.0 Paroxysmal atrial fibrillation; I25.10 Atherosclerotic heart disease of native coronary artery without angina pectoris; N28.9 Disorder of kidney and ureter, unspecified; M10.9 Gout, unspecified; I08.0 Rheumatic disorders of both mitral and aortic valves; Z79.01 Long term (current) use of anticoagulants; Z79.899 Other long term (current) drug therapy; Z88.0 Allergy status to penicillin; Z88.8 Allergy status to other drugs, medicaments and biological substances; Z99.81 Dependence on supplemental oxygen; Z95.5 Presence of coronary angioplasty implant and graft; Z87.891 Personal history of nicotine dependence; Z79.84 Long term (current) use of oral hypoglycemic drugs; Z95.810 Presence of automatic (implantable) cardiac defibrillator
CPT/HCPCS: 36415; 71045; 80053; 80061; 81000; 82805; 82962; 83605; 83880; 84484; 85025; 85027; 85610; 85730; 86141; 87040; 87088; 87804; 93005; 94640; 94760; 94761; 96361; 96365; 96375; G0378

== ENCOUNTER 2019-11-03 12:34 | Inpatient (IN) | payer OTHER ==
[~2019-11-03] VITALS: Ht 175 cm; Wt 81.0 kg
[~2019-11-03 12:34] MED LIST: ALLO300T2 PO; APIX2.5T PO; BUDE10.26 IH; CAPS42.513 TP; DOCU100C37 PO; DOXA2TAB2 PO; FERR324T4 PO; FLUT16SP22 NS; FURO40TA4 PO; GLIP5TAB13 PO; ISOS30TA3 PO; LEVA0.3129 IH; METO2.5T PO; MTP100TCR PO; NITR0.4T39 SL; PANT40TA3 PO; POLY17PO6 PO; POTA-51 PO; PRED10TA22 PO; ROSU40TA23 PO; VIT D PO
[2019-11-03 13:21] LABS: BASOPHILS % (AUTO) 0 % (0-10); EOSINOPHILS % (AUTO) 0 % (0-10); HEMATOCRIT 37 % (40-54); HEMOGLOBIN 11.5 G/DL (13.3-17.7); LYMPHOCYTES # (AUTO) 0.7 X 10^3 (1.0-4.0); LYMPHOCYTES % (AUTO) 4 % (12-44); MEAN CORPUSCULAR HEMOGLOBIN 29 PG (25-34); MEAN CORPUSCULAR HGB CONC 31 G/DL (32-36); MEAN CORPUSCULAR VOLUME 93 FL (80-99); MEAN PLATELET VOLUME 9.1 FL (7.4-10.4); MONOCYTES # (AUTO) 0.7 X 10^3 (0.0-1.0); MONOCYTES % (AUTO) 4 % (0-12); NEUTROPHILS # (AUTO) 16.2 X 10^3 (1.8-7.8); NEUTROPHILS % (AUTO) 92 % (42-75); PLATELET COUNT 243 10^3/uL (130-400); WHITE BLOOD COUNT 17.6 10^3/uL (4.3-11.0)
--- NOTE | 2019-11-03 13:22 | ED General ---
General Chief Complaint: Respiratory Problems Stated Complaint: SOA Source of Information: Patient Exam Limitations: No Limitations History of Present Illness Date Seen by Provider: Nov 03, 2019 Time Seen by Provider: 12:58 Initial Comments Here with report of increasing shortness of air since early this morning. Woke up and noted O2 sats in the 60s. He did increase his normal oxygen from 2 L/m via nasal cannula to 3 L/m via nasal cannula. is currently on steroids for COPD exacerbation and hospitalization on the and 10 of October. Denies fever. Does have runny nose and cough. States that he's only been home since the hospitalization. His is radiological engineer and she is not sick and also is not traveling. Currently on prednisone therapy and is tapering and currently at 10 mg daily for 1 more day. He will then go to 5 mg daily for several days after that. Not currently on antibiotics. Timing/Duration: 12-24 Hours Severity: Moderate, Severe Modifying Factors: improves with Rest Associated Systoms: No Chest Pain, No Cough, No Fever/Chills, No Nausea/Vomiting; Shortness of Air Allergies and Home Medications Allergies Coded Allergies: Penicillins (Verified Allergy, Unknown, 10/10/19) acetaminophen (Verified Allergy, Unknown, 10/10/19) gabapentin (Verified Allergy, Unknown, 10/10/19) lisinopril (Verified Allergy, Unknown, 10/10/19) simvastatin (Verified Allergy, Unknown, 10/10/19) varenicline (Verified Allergy, Unknown, 10/10/19) Home Medications Allopurinol 300 Mg Tablet, 300 MG PO DAILY, (Reported) Apixaban 2.5 Mg Tablet, 2.5 MG PO BID, (Reported) Budesonide/Formoterol Fumarate 10.2 Gm Hfa.aer.ad, 10.2 GM IH BID Prescribed by: FUNMI BAE on 10/11/19 1152 Capsaicin 42.5 Gm Cream..g., 1 APPLIC TP PRN, (Reported) APPLY TO AFFECTED AREA TWO TIMES A DAY NEEDED FOR PAIN Docusate Sodium 100 Mg Capsule, 100 MG PO BID, (Reported) Doxazosin Mesylate 2 Mg Tablet, 2 MG PO HS, (Reported) Ferrous Sulfate 324 Mg Tablet.dr, 324 MG PO DAILY Prescribed by: FNUMI BAE on 10/11/19 1202 Fluticasone Propionate 16 Gm [place].susp, 2 SPRAYS NS DAILY, (Reported) 2 SPRAYS IN EACH NOSTRIL ONCE A DAY FOR SINUS DRAINAGE/ALLERGIES Furosemide 40 Mg Tablet, 40 MG PO BID, (Reported) Glipizide 5 Mg Tablet, 2.5 MG PO DAILY, (Reported) Isosorbide Mononitrate 30 Mg Tab.er.24h, 30 MG PO DAILY, (Reported) Levalbuterol HCl 0.31 Mg/3 Ml Vial.neb, 0.42 MG IH PRN, (Reported) Metolazone 2.5 Mg Tablet, 2.5 MG PO WEEK, (Reported) Metoprolol Succinate 100 Mg Tab.er.24h, 150 MG PO DAILY, (Reported) Nitroglycerin 0.4 Mg Tab.subl, 0.4 MG SL UD PRN for CHEST PAIN, (Reported) DISSOLVE ONE TABLET UNDER THE TONGUE ONCE NEEDED FOR CHEST PAIN-MAY TAKE 2 ADDITIONAL DOSES. 5 MINUTES APART. Pantoprazole Sodium 40 Mg Tablet.dr, 40 MG PO DAILY, (Reported) Potassium Chloride 20 Meq Tablet.er, 20 MEQ PO BID Prescribed by: FUNMI BAE on 10/11/19 1155 Prednisone 10 Mg Tab.ds.pk, 10 MG PO DAILY Take 6 tabs(60mg)daily,decrease by 1 tab(10mg)every other day. Prescribed by: PHUC WASHINGTON on 10/12/19 1018 Rosuvastatin Calcium 40 Mg Tablet, 40 MG PO HS, (Reported) [Vit D] , 1,000 PO DAILY Prescribed by: FUNMI BAE on 10/11/19 1201 Patient Home Medication List Home Medication List Reviewed: Yes Review of Systems Review of Systems Constitutional: see HPI; No chills, No fever; malaise, weakness EENTM: nose congestion; No throat pain Respiratory: cough, dyspnea on exertion, short of breath, wheezing Cardiovascular: no symptoms reported Gastrointestinal: no symptoms reported Genitourinary: no symptoms reported Musculoskeletal: no symptoms reported Skin: no symptoms reported Psychiatric/Neurological: Weakness All Other Systems Reviewed Negative Unless Noted: Yes Past Cqwjrti-Scxfec-Usiimv Hx Past Med/Social Hx: Reviewed Nursing Past Med/Soc Hx Patient Social History Alcohol Use: Past History Smoking Status: Former Smoker Type Used: Cigarettes Former Smoker, Quit: Sep 21, 2015 Recent Hopitalizations: No Immunizations Up To Date Date of Pneumonia Vaccine: Oct 10, 2015 Date of Influenza Vaccine: May 11, 2019 Seasonal Allergies Seasonal Allergies: No Past Medical History Surgeries: Yes (PACER/DEFIB) Orthopedic, Pacemaker, Tonsillectomy Respiratory: Yes COPD Cardiac: Yes (PACER/DEFIB) Chronic Edema/Swelling, Coronary Artery Disease, Hypertension Neurological: No Genitourinary: No Gastrointestinal: No Musculoskeletal: No Endocrine: Yes Diabetes, Non-Insulin dep HEENT: No Cancer: No Psychosocial: No Integumentary: No Blood Disorders: No Family Medical History Reviewed Nursing Family Hx (History of the) AIDS Physical Exam-Suspected Sepsis Physical Exam Vital Signs Vital Signs - First Documented 11/03/19 12:35 Temp 37.0 Pulse 137 Resp 30 B/P (MAP) 142/85 (104) Pulse Ox 97 O2 Delivery Nasal Cannula O2 Flow Rate 3.00 FiO2 97 Capillary Refill : Height, Weight, BMI Height: '" Weight: lbs. oz. kg; 27.82 BMI Method: General Appearance: WD/WN, Mild Distress HEENT: PERRL/EOMI, Pharynx Normal Neck: Non Tender, Supple Respiratory: No Accessory Muscle Use, Crackles (Bilateral bases with left greater than right), Wheezing (Throughout) Cardiovascular: No Murmur, Tachycardia Gastrointestinal: Non Tender, Soft Back: Normal Inspection, No CVA Tenderness, No Vertebral Tenderness Extremity: Normal Range of Motion, Non Tender Neurologic/Psychiatric: Alert, Oriented x3; No Motor Weakness Skin: normal color, warm/dry Focused Exam Lactate Level 11/03/19 13:00: Lactic Acid Level 1.62 Lactic Acid Level Laboratory Tests Test 11/03/19 13:00 Lactic Acid Level 1.62 MMOL/L (0.50-2.00) Progress/Results/Core Measures Suspected Sepsis SIRS Temperature: Pulse: Respiratory Rate: Laboratory Tests 11/03/19 13:00: White Blood Count 17.6H Blood Pressure / Mean: 11/03/19 13:00: Lactic Acid Level 1.62 Laboratory Tests 11/03/19 13:00: Creatinine 1.96H, INR Comment 1.1, Platelet Count 243, Total Bilirubin 0.4 Results/Orders Lab Results Laboratory Tests Test 11/03/19 13:00 11/03/19 13:25 Range/Units White Blood Count 17.6 H 4.3-11.0 10^3/uL Red Blood Count 4.01 L 4.35-5.85 10^6/uL Hemoglobin 11.5 L 13.3-17.7 G/DL Hematocrit 37 L 40-54 % Mean Corpuscular Volume 93 80-99 FL Mean Corpuscular Hemoglobin 29 25-34 PG Mean Corpuscular Hemoglobin Concent 31 L 32-36 G/DL Red Cell Distribution Width 15.0 H 10.0-14.5 % Platelet Count 243 130-400 10^3/uL Mean Platelet Volume 9.1 7.4-10.4 FL Neutrophils (%) (Auto) 92 H 42-75 % Lymphocytes (%) (Auto) 4 L 12-44 % Monocytes (%) (Auto) 4 0-12 % Eosinophils (%) (Auto) 0 0-10 % Basophils (%) (Auto) 0 0-10 % Neutrophils # (Auto) 16.2 H 1.8-7.8 X 10^3 Lymphocytes # (Auto) 0.7 L 1.0-4.0 X 10^3 Monocytes # (Auto) 0.7 0.0-1.0 X 10^3 Eosinophils # (Auto) 0.0 0.0-0.3 10^3/uL Basophils # (Auto) 0.0 0.0-0.1 10^3/uL Neutrophils % (Manual) 87 % Lymphocytes % (Manual) 5 % Monocytes % (Manual) 6 % Eosinophils % (Manual) 0 % Basophils % (Manual) 0 % Band Neutrophils 2 % Blood Morphology Comment NORMAL Erythrocyte Sedimentation Rate 57 H 0-30 MM/HR Prothrombin Time 15.1 H 12.2-14.7 SEC INR Comment 1.1 0.8-1.4 Activated Partial Thromboplast Time 40 H 24-35 SEC D-Dimer 0.47 0.00-0.49 UG/ML Sodium Level 136 135-145 MMOL/L Potassium Level 3.4 L 3.6-5.0 MMOL/L Chloride Level 92 L 98-107 MMOL/L Carbon Dioxide Level 32 21-32 MMOL/L Anion Gap 12 5-14 MMOL/L Blood Urea Nitrogen 25 H 7-18 MG/DL Creatinine 1.96 H 0.60-1.30 MG/DL Estimat Glomerular Filtration Rate 34 BUN/Creatinine Ratio 13 Glucose Level 127 H 70-105 MG/DL Lactic Acid Level 1.62 0.50-2.00 MMOL/L Calcium Level 9.9 8.5-10.1 MG/DL Corrected Calcium 10.2 H 8.5-10.1 MG/DL Total Bilirubin 0.4 0.1-1.0 MG/DL Aspartate Amino Transf (AST/SGOT) 27 5-34 U/L Alanine Aminotransferase (ALT/SGPT) 30 0-55 U/L Alkaline Phosphatase 75 40-136 U/L Lactate Dehydrogenase 333 H 125-220 U/L Troponin I 0.069 H <0.028 NG/ML C-Reactive Protein High Sensitivity 26.18 H 0.00-0.50 MG/DL B-Type Natriuretic Peptide 298.6 H <100.0 PG/ML Total Protein 7.6 6.4-8.2 GM/DL Albumin 3.6 3.2-4.5 GM/DL Procalcitonin 7.86 H <0.10 NG/ML My Orders Orders - ANTHONY JACOBSEN MD Cbc With Automated Diff (11/03/19 13:11) Comprehensive Metabolic Panel (11/03/19 13:11) Blood Culture (11/03/19 13:11) Sputum Culture (11/03/19 13:11) Urinalysis (11/03/19 13:11) Urine Culture (11/03/19 13:11) Protime With Inr (11/03/19 13:11) Partial Thromboplastin Time (11/03/19 13:11) Chest 1 View, Ap/Pa Only (11/03/19 13:11) Ed Iv/Invasive Line Start (11/03/19 13:11) Ekg Tracing (11/03/19 13:11) Troponin I (11/03/19 13:11) Vital Signs Adult Sepsis Patie Q15M (11/03/19 13:11) O2 (11/03/19 13:11) Remove Rings In Anticipation O (11/03/19 13:11) Lactic Acid Analyzer (11/03/19 13:11) Fibrin Degradation Products (11/03/19 13:11) Procalcitonin (Pct) (11/03/19 13:11) Hs C Reactive Protein (11/03/19 13:11) Erythrocyte Sedimentation Rate (11/03/19 13:11) LDH (11/03/19 13:11) BNP (11/03/19 13:11) Methylprednisolone Sod Succ (Solu-Medrol (11/03/19 13:34) Manual Differential (11/03/19 13:00) Albuterol/Ipra Inhalation Soln (Duoneb I (11/03/19 13:49) Albuterol/Ipra Inhalation Soln (Duoneb I (11/03/19 14:00) Svn Small Volume Nebulizer (11/03/19 13:56) Cefepime Injection (Maxipime Injection) (11/03/19 14:15) Cefepime Injection (Maxipime Injection) (11/03/19 14:11) Water (Sterile) For Injection (Sterile W (11/03/19 14:13) Albuterol Pre-Mix Nebs (Rt) (Proventil (11/03/19 14:21) Svn Small Volume Nebulizer (11/03/19 14:21) Albuterol Pre-Mix Nebs (Rt) (Proventil (11/03/19 14:18) Vancomycin Injection (Vancomycin Injecti (11/03/19 14:30) Medications Given in ED Current Medications Medications Dose Ordered Sig/Mabel Route Start Time Stop Time Status Last Admin Dose Admin Albuterol/ Ipratropium 3 ml STK-MED ONCE .ROUTE 11/03/19 13:49 11/03/19 13:57 DC 11/03/19 14:00 3 ML Vital Signs/I&O 11/03/19 11/03/19 12:35 12:35 Temp 37.0 Pulse 137 Resp 30 B/P (MAP) 142/85 (104) Pulse Ox 97 O2 Delivery Nasal Cannula O2 Flow Rate 3.00 3.00 FiO2 97 Capillary Refill : Progress Note : Progress Note Seen and evaluated. Sepsis protocol initiated. COVID-19 prescreening initiated and we will determine the need for swab based on laboratory evaluation. Anita glover does not have contact history. Patient seen in full personal protective equipment. Monitor patient. 1415: Chest x-ray does reveal right midlung pneumonia. Labs consistent with pneumonia and not viral illness (COVID-19) and patient has no significant contact history. Duo neb ordered due to shortness of breath and COPD. I did discuss the case with Dr. Washington and he accepts patient for admission, inpatient status. Albuterol neb ordered. Cefepime 2 g IV and vancomycin 1500 mg IV ordered for initial dosing. Pneumonia order set initiated with bridge orders. Admit, inpatient status. Patient agrees with plan. ECG Initial ECG Impression Date: Nov 03, 2019 Initial ECG Impression Time: 13:03 Initial ECG Rate: 119 Comment Atrial sensed, ventricular paced complexes. No evidence of ST elevation MO. Similar to previous of 10/10/19. Extreme right axis deviation. Interpreted by me. Diagnostic Imaging Diagonstic Imaging: Xray Plain Films/CT/US/NM/MRI: chest Comments [facility]. [place], [place] NAME: LORI CASTREJON [facility] REC#: [id number] PT STATUS: REG ER : 1950 PHYSICIAN: ANTHONY JACOBSEN MD ADMIT DATE: 11/03/19/ER Draft Date of Exam:11/03/19 CHEST 1 VIEW, AP/PA ONLY INDICATION: Cough and shortness of breath. TIME OF EXAM: 1:51 PM. COMPARISON: 10/11/2019. FINDINGS: The heart is enlarged but stable. There is a cardiac defibrillator in place. There is some minimal parenchymal density in the right mid to lower lung field, perhaps minimal patchy infiltrate. The left lung is clear. There is no effusion. There is no pneumothorax. IMPRESSION: Minimal patchy parenchymal density in the right mid lung, suspicious for pneumonia. Dictated on workstation # [id number] Dict: 11/03/19 1404 Trans: 11/03/19 1411 [id number] Interpreted by: CLAUDINE VALENTINE MD Electronically signed by: Departure Communication (Admissions) Time/Spoke to Admitting Phy: 14:15 Impression Primary Impression: Right middle lobe pneumonia Qualified Codes: J18.1 - Lobar pneumonia, unspecified organism Additional Impression: COPD with acute exacerbation Disposition: ADMITTED INPATIENT Condition: Stable Admissions Decision to Admit Reason: Admit from ER (General) Decision to Admit/Date: Nov 03, 2019 Time/Decision to Admit Time: 14:15 Departure-Patient Inst. Referrals: NO,LOCAL PHYSICIAN (PCP/Family) Primary Care Physician ANTHONY JACOBSEN MD Nov 03, 2019 13:22
[2019-11-03 13:34] LABS: ALBUMIN 3.6 GM/DL (3.2-4.5)
[2019-11-03] MEDS ORDERED: methylPREDNISolone 125 MG (Solu-MEDROL) VIAL IV STA (13:34)
[2019-11-03 13:35] LABS: POTASSIUM 3.4 MMOL/L (3.6-5.0)
[2019-11-03 13:36] LABS: CALCIUM 9.9 MG/DL (8.5-10.1)
[2019-11-03 13:37] LABS: FIBRIN DEGRADATION PRODUCTS 0.47 UG/ML (0.00-0.49); INR 1.1 (0.8-1.4); PROTHROMBIN TIME PATIENT 15.1 SEC (12.2-14.7); TOTAL PROTEIN 7.6 GM/DL (6.4-8.2)
[2019-11-03 13:39] LABS: BILIRUBIN,TOTAL 0.4 MG/DL (0.1-1.0)
[2019-11-03 13:41] LABS: CREATININE SERUM 1.96 MG/DL (0.60-1.30)
[2019-11-03 13:42] LABS: ERYTHROCYTE SEDIMENTATION RATE 57 MM/HR (0-30)
[2019-11-03] MEDS ORDERED: RT-ALBUTEROL/IPRATROPIUM 3 ML (DUONEB) VIAL ONE (13:49)
[2019-11-03 13:54] LABS: BAND NEUTROPHILS 2 %; BASOPHILS % (MANUAL) 0 %; EOSINOPHILS % (MANUAL) 0 %; LYMPHOCYTES % (MANUAL) 5 %; MONOCYTES % (MANUAL) 6 %; NEUTROPHILS % (MANUAL) 87 %; RBC MORPH NORMAL
[2019-11-03] MEDS ORDERED: RT-ALBUTEROL/IPRATROPIUM 3 ML (DUONEB) VIAL INH ONE (14:00)
[2019-11-03 14:02] LABS: BILIRUBIN,URINE NEGATIVE (NEGATIVE); CLARITY,URINE CLEAR; COLOR,URINE YELLOW; GLUCOSE, URINE (UA) NEGATIVE (NEGATIVE); KETONES,URINE NEGATIVE (NEGATIVE); LEUKOCYTE ESTERASE ,URINE NEGATIVE (NEGATIVE); NITRITE,URINE NEGATIVE (NEGATIVE); PH,URINE 5.5 (5-9); PROTEIN,URINE TRACE (NEGATIVE)
[2019-11-03] MEDS ORDERED: CEFEPIME 1 GM (MAXIPIME) VIAL ONE (14:11)
--- NOTE | 2019-11-03 14:11 | Diagnostic Imaging Report ---
INDICATION: Cough and shortness of breath. TIME OF EXAM: 1:51 PM. COMPARISON: 10/11/2019. FINDINGS: The heart is enlarged but stable. There is a cardiac defibrillator in place. There is some minimal parenchymal density in the right mid to lower lung field, perhaps minimal patchy infiltrate. The left lung is clear. There is no effusion. There is no pneumothorax. IMPRESSION: Minimal patchy parenchymal density in the right mid lung, suspicious for pneumonia. Dictated by: Dictated on workstation # [id number]
[2019-11-03] MEDS ORDERED: WATER (STERILE) FOR INJECTION 40 ML ONE (14:13)
[2019-11-03] MEDS ORDERED: CEFEPIME INJECTION 2,000 MG in WATER (STERILE) FOR INJECTION 20 ML IV ONE (14:15)
[2019-11-03] MEDS ORDERED: RT-ALBUTEROL SULF 2.5 MG/3 ML PRE-MIX VIAL ONE (14:18)
[2019-11-03] MEDS ORDERED: RT-ALBUTEROL SULF 2.5 MG/3 ML PRE-MIX VIAL INH STA (14:21)
[2019-11-03] MEDS ORDERED: VANCOMYCIN INJECTION 750 MG in NS (IVPB) 250 ML IV SCH (14:30)
[2019-11-03 14:38] LABS: BACTERIA,URINE NEGATIVE /HPF; RBC,URINE 0-2 /HPF
[2019-11-03] MEDS ORDERED: VANCOMYCIN 1500 MG/NS 500 ML IVPB IV ONE ×2 (14:45)
--- NOTE | 2019-11-03 15:19 | NUR ---
LORI CASTREJON admitted to room 408-1, with an admitting diagnosis of PNEUMONIA, on 11/03/19 from ER, accompanied by PERSONNEL.LORI CASTREJON introduced to surroundings, call light, bed controls, phone, TV, temperature control, lights, meal times, smoking policy, visitor policy, side rail policy, bathrooms and showers. Patient Rights given to patient in the handbook. LORI CASTREJON verbalizes understanding that [facility] is not responsible for the loss or damage to any personal effects or valuables that are kept in the patients posession during their hospitalization. The following Patient Care Plans were discussed with the : Discharge Planning,INEFFECTIVE BREATHING, ANXIETY, and ACTIVITY INTOLERANCE. LORI CASTREJON verbalizes understanding of Interdisciplinary Patient Education.
[2019-11-03 15:59] VITALS: BP_SYST 115; BP_SYST 142; BP_DIAS 72; BP_DIAS 85
[2019-11-03] MEDS ORDERED: ONDANSETRON 4 MG/2 ML (SDV) Z0FRAN IV PRN ×2 (16:00→17:45)
[2019-11-03] MEDS ORDERED: CATHETER FLUSH 10 ML SYR IV PRN (16:00)
[2019-11-03 16:01] VITALS: BP 115/72
--- NOTE | 2019-11-03 16:39 | NUR ---
CR 1.96; CR CL ~35; WT 79 KG; PT RECEIVED VANCO 1500 MG IV BOLUS IN ER; WILL CONTINUE WITH VANCO 1000 MG IV Q24H FOR 3 DAY THERAPY
[2019-11-03] MEDS: LACTATED RINGERS 1,000 ML IV SCH (17:04)
[2019-11-03] MEDS: methylPREDNISolone 125 MG (Solu-MEDROL) VIAL IV SCH ×2 (17:37→23:20)
[2019-11-03] MEDS ORDERED: ANTACID SUSP 30 ML UDC (MYLANTA) PO PRN (17:45)
[2019-11-03] MEDS ORDERED: MELATONIN 3 MG TABLET PO PRN (17:45)
[2019-11-03] MEDS ORDERED: ONDANSETRON 4 MG (ZOFRAN) ORAL DISSOLVE TAB PO PRN (17:45)
[2019-11-03] MEDS ORDERED: BISACODYL 10 MG SUPP (DULCOLAX) PR PRN (17:45)
[2019-11-03] MEDS ORDERED: polyethylene glycoL POWDER 17 GM (MIRALAX) PACK PO PRN (17:45)
[2019-11-03] MEDS: RT-ALBUTEROL/IPRATROPIUM 3 ML (DUONEB) VIAL INH SCH ×2 (18:12→21:22)
--- NOTE | 2019-11-03 18:53 | NUR ---
PER RESPIRATORY, PT MAY USE HOME INHALER NOW
[2019-11-03] MEDS ORDERED: RT-ALBUTEROL/IPRATROPIUM 3 ML (DUONEB) VIAL INH PRN (20:00)
[2019-11-03 20:11] VITALS: BP 118/70
[2019-11-03] MEDS: APIXABAN 2.5 MG (ELIQUIS) TABLET PO SCH (20:47)
[2019-11-03] MEDS: inSUlin ASPART (NovoLOG) 1 UNIT/0.01 ML (CHARGE PER UNIT) SC SCH (20:48)
[2019-11-03] MEDS: FUROSEMIDE 20 MG (LASIX) TAB PO SCH (21:12)
--- NOTE | 2019-11-03 22:55 | NUR ---
1999-pt called this rn into his room to request his night time medications-this rn advised this pt that I would be assisting him with his medications. this rn discussed with this pt what medications were currently ordered. pt requesting that his lasix be started. Roughly 2029-pt called his to clarify the dosing. this pt asked that this rn speak with his about his lasix dose-pt stated that the patient takes lasix 40mg twice daily by mouth. 2105-this rn contacted dr. tucker about pt request to have home lasix dose started. order received at this time.
[2019-11-03 23:26] VITALS: BP 120/62
[2019-11-04] VITALS (7 sets, daily range): BP systolic 96–137; BP diastolic 53–84
[2019-11-04] MEDS: RT-ALBUTEROL/IPRATROPIUM 3 ML (DUONEB) VIAL INH SCH ×6 (01:32→21:59)
[2019-11-04 05:03] LABS: BASOPHILS % (AUTO) 0 % (0-10); EOSINOPHILS % (AUTO) 0 % (0-10); HEMATOCRIT 32 % (40-54); HEMOGLOBIN 10.1 G/DL (13.3-17.7); LYMPHOCYTES # (AUTO) 0.6 X 10^3 (1.0-4.0); LYMPHOCYTES % (AUTO) 5 % (12-44); MEAN CORPUSCULAR HEMOGLOBIN 29 PG (25-34); MEAN CORPUSCULAR HGB CONC 32 G/DL (32-36); MEAN CORPUSCULAR VOLUME 93 FL (80-99); MEAN PLATELET VOLUME 9.5 FL (7.4-10.4); MONOCYTES # (AUTO) 0.3 X 10^3 (0.0-1.0); MONOCYTES % (AUTO) 2 % (0-12); NEUTROPHILS # (AUTO) 12.1 X 10^3 (1.8-7.8); NEUTROPHILS % (AUTO) 93 % (42-75); PLATELET COUNT 229 10^3/uL (130-400); RED CELL DISTRIBUTION WIDTH 14.8 % (10.0-14.5)
[2019-11-04 05:27] LABS: ALBUMIN 3.3 GM/DL (3.2-4.5)
[2019-11-04 05:28] LABS: POTASSIUM 3.1 MMOL/L (3.6-5.0)
[2019-11-04 05:29] LABS: CALCIUM 9.5 MG/DL (8.5-10.1)
[2019-11-04 05:30] LABS: TOTAL PROTEIN 6.6 GM/DL (6.4-8.2)
[2019-11-04 05:32] LABS: BILIRUBIN,TOTAL 0.3 MG/DL (0.1-1.0)
[2019-11-04 05:33] LABS: CREATININE SERUM 1.8 MG/DL (0.60-1.30)
[2019-11-04] MEDS: inSUlin ASPART (NovoLOG) 1 UNIT/0.01 ML (CHARGE PER UNIT) SC SCH ×4 (06:04→20:27)
[2019-11-04] MEDS: LACTATED RINGERS 1,000 ML IV SCH ×2 (06:28→16:48)
[2019-11-04] MEDS: methylPREDNISolone 125 MG (Solu-MEDROL) VIAL IV SCH ×2 (06:28→11:13)
[2019-11-04] MEDS: FUROSEMIDE 20 MG (LASIX) TAB PO SCH ×2 (08:15→16:48)
[2019-11-04] MEDS: APIXABAN 2.5 MG (ELIQUIS) TABLET PO SCH ×2 (08:15→20:00)
[2019-11-04] MEDS ORDERED: CHOL10007 PO (09:00)
[2019-11-04] MEDS ORDERED: POLY17PO6 PO (09:00)
[2019-11-04] MEDS ORDERED: APIX5TAB PO (09:00)
[2019-11-04] MEDS ORDERED: CETI10TA21 PO (09:00)
[2019-11-04] MEDS ORDERED: FERR325T17 PO (09:00)
[2019-11-04] MEDS ORDERED: METO5TAB6 PO (09:00)
[2019-11-04] MEDS ORDERED: DOXA4TAB2 PO (09:00)
[2019-11-04] MEDS ORDERED: TIOT4MIS2 IH (09:16)
[2019-11-04] MEDS ORDERED: BUDE10.2 IH (09:16)
[2019-11-04] MEDS ORDERED: RT-ALBUINH IH (09:16)
[2019-11-04] MEDS ORDERED: PRD10T PO (09:22)
[2019-11-04] MEDS ORDERED: LEVA1.2543 IH (09:32)
--- NOTE | 2019-11-04 09:32 | NUR ---
SPOKE WITH THE PT, [facility] TO AND SPOKE WITH THE PATIENTS TO COMPLETE THE MED REC THE PATIENT HAS HIS INHALERS WITH HIM IN THE ROOM ALONG WITH PILLS THAT ARE IN A PILL HEATING AND VENTILATING TENDER THE SET UP ALL HIS MEDS AND WAS ABLE TO ANSWER MY QUESTIONS. THE FOLLOWING ARE [facility] DATES [facility]: 07-29-2019 GLIPIZIDE 5MG #45/90DS 08-05-2019 ZYRTEC 10MG #45/90DS 08-05-2019 VITAMIN D #200/100DS 08-19-2019 DOXAZOSIN 4MG #45/90DS 09-16-2019 FUROSEMIDE 40MG #180/90DS 09-16-2019 METOLAZONE 5MG #7/90DS 09-16-2019 DOCUSATE 100MG #200/100DS 09-16-2019 METOPROLOL SUCC 100MG #135/90DS 09-24-2019 LEVALBUTEROL 1.25MG/3ML #125 09-24-2019 ELIQUIS 5MG #90/90DS 09-30-2019 PANTOPRAZOLE 40MG #90/90DS 10-13-2019 ISOSORBIDE MONO ER 30MG #90/90DS 10-21-2019 ALLOPURINOL 300MG #90/90DS 10-21-2019 IRON 324MG #100/100DS [facility] IS CALLING BACK WITH THE FILL DATES OF THE INHALERS. WHEN I ASKED THE PT AND THEN HIS WHEN HE RECEIVED THEM THEY BOTH INDICATED THAT THEY CAME VIA MAIL RECENTLY Addendum: 11/04/19 at 1048 by NAZ PLUMMER [facility] 10-15-2019 ALBUTEROL HFA #3/90DS 10-15-2019 SYMBICORT 160/4.5 #3 09-15-2019 SPIRIVA 2.5 #3
[2019-11-04] MEDS ORDERED: FLUTICASONE NASAL SPRAY (FLONASE) 16 GM BTL NS PRN (11:45)
--- NOTE | 2019-11-04 12:11 | History & Physical-Hospitalist ---
History of Present Illness HPI/Chief Complaint Manny Funes is a 68-year-old male with past medical history of hypertension, diabetes, hyperlipidemia, chronic kidney disease, atrial fibrillation, coronary artery disease, heart failure with reduced ejection fraction, COPD, who presented with shortness of breath and cough. He reports that he had been coughing up some grayish brown sputum. He reports feeling weak. He denies any fevers or chills. He denies any chest pain. He denies any abdominal pain, nausea, or vomiting. He denies any diarrhea. He has no other complaints or concerns. Source: patient Exam Limitations: no limitations Date Seen 11/04/19 Time Seen by a Provider: 10:15 Attending Physician Christine Washington MD PCP No,Local Physician Referring Physician Date of Admission Nov 03, 2019 at 14:38 Home Medications & Allergies Home Medications Reviewed patient Home Medication Reconciliation performed by pharmacy medication reconciliations recreation technician and/or nursing. Patients Allergies have been reviewed. Allergies Allergies Coded Allergies Penicillins (Verified Allergy, Unknown, 10/10/19) acetaminophen (Verified Allergy, Unknown, 10/10/19) gabapentin (Verified Allergy, Unknown, 10/10/19) lisinopril (Verified Allergy, Unknown, 10/10/19) simvastatin (Verified Allergy, Unknown, 10/10/19) varenicline (Verified Allergy, Unknown, 10/10/19) Past Smrfjnf-Stfcrj-Etplhy Hx Past Med/Social Hx: Reviewed Nursing Past Med/Soc Hx Patient Social History Alcohol Use: Past History Recreational Drug Use: No Smoking Status: Former Smoker Former Smoker, Quit: Sep 21, 2015 Type Used: Cigarettes Recent Foreign Travel: No Contact w/other who traveled: No Recent Hopitalizations: Yes (COPD EXACERBATION) Recent Infectious Disease Expo: No Immunizations Up To Date Date of Pneumonia Vaccine: Oct 10, 2015 Date of Influenza Vaccine: May 11, 2019 Seasonal Allergies Seasonal Allergies: No Past Medical History Surgeries: Orthopedic, Pacemaker, Tonsillectomy Cardiac: Chronic Edema/Swelling, Coronary Artery Disease, Hypertension Endocrine: Diabetes, Non-Insulin dep History of Blood Disorders: No Family History Reviewed Nursing Family Hx (History of the) AIDS Review of Systems Constitutional: malaise, weakness EENTM: no symptoms reported Respiratory: cough, phlegm, short of breath Cardiovascular: no symptoms reported Gastrointestinal: no symptoms reported Genitourinary: no symptoms reported Musculoskeletal: no symptoms reported Skin: no symptoms reported Psychiatric/Neurological: No Symptoms Reported Physical Exam Physical Exam Vital Signs Vital Signs - First Documented 11/03/19 12:35 Temp 37.0 Pulse 137 Resp 30 B/P (MAP) 142/85 (104) Pulse Ox 97 O2 Delivery Nasal Cannula O2 Flow Rate 3.00 FiO2 97 Capillary Refill : Less Than 3 SecondsLess Than 3 Seconds Height, Weight, BMI Height: '" Weight: lbs. oz. kg; 25.79 BMI Method: General Appearance: No Apparent Distress, Chronically ill Respiratory: No Respiratory Distress, Crackles, Wheezing Cardiovascular: Regular Rate, Rhythm, No Edema, No Murmur Gastrointestinal: Normal Bowel Sounds, Non Tender, Soft Extremity: Normal Inspection, Non Tender, No Pedal Edema Neurologic/Psychiatric: Alert, Oriented x3, No Motor/Sensory Deficits, Other (agitated) Skin: Normal Color, Warm/Dry Results Results/Procedures Labs Laboratory Tests 11/03/19 13:00 11/04/19 04:28 Patient resulted labs reviewed. Imaging: Reviewed Imaging Report Assessment/Plan Admission Diagnosis sepsis due to pneumonia Admission Status: Inpatient Order (span 2 midnights) Reason for Inpatient Admission: pneumonia requiring IV antibiotics Assessment and Plan Sepsis due to pneumonia COPD with acute exacerbation acute respiratory failure with hypoxia SIRS+ with leukocytosis and tachycardia chest x-ray with right middle lobe pneumonia Procalcitonin elevated at 7, trended down to 5 today started on vancomycin and cefepime discontinue vancomycin Continue cefepime Blood cultures drawn Started on IV steroids Transition to oral prednisone MAT protocol type II diabetes mellitus Sliding scale insulin HTN HLD CAD Chronic HFrEF AFib CKD 3 Stable, continue home meds, no acute management needs DVT prophylaxis: Already receiving therapeutic anticoagulation Diagnosis/Problems Diagnosis/Problems (1) Sepsis due to pneumonia Status: Acute (2) COPD with acute exacerbation Status: Acute (3) Acute respiratory failure with hypoxia Status: Acute Clinical Quality Measures DVT/VTE Risk/Contraindication: Risk Factor Score Per Nursin RFS Level Per Nursing on Admit: 3=High CHRISTINE WASHINGTON MD Nov 04, 2019 12:11
[2019-11-04] MEDS ORDERED: CEFEPIME 2,000 MG/SWFI 20 ML IV PUSH IV SCH ×2 (14:00)
--- NOTE | 2019-11-04 14:00 | NUR ---
DR. WASHINGTON NOTIFIED OF VU=783/52 AND PULSE RATE 118 PRIOR TO GIVING IMDUR 30 MG AND TOPROL [address] WASHINGTON STATED OK TO GIVE BOTH MEDS ORDERED. MEDS GIVEN. PT. ALERT SITTING UP ON SIDE OF BED. VERY TALKATIVE.
[2019-11-04] MEDS: meTOprolol SUCCINATE 100 MG (TOPROL XL) TAB PO SCH (14:03)
[2019-11-04] MEDS: ISOSORBIDE MONONITRATE 30 MG (IMDUR) TAB PO SCH (14:05)
--- NOTE | 2019-11-04 14:10 | Physician Query Clarification ---
PQ-Further Specificity Admission/Discharge Admission Date: Nov 03, 2019 at 14:38 Discharge Date: The medical record reflects the following clinical scenario: History/Risk Factors: Sepsis due to pneumonia Acute respiratory failure with hypoxia documented on your H&P. Clinical Findings:Respiration 30, Crackles (Bilateral bases with left greater t pollock right), wheezing (throughout). Per ED record, "Shortness of air since early this morning. Woke up and noted 02 sats in the 60s. He did increase his normal oxygen from 2 L/m via nasal cannula to 3L/m via nasal cannula." Treatment: Sepsis protocol initiated. Duo neb, IV Solu Medrol 125mg IV, IV Cefepime HCI 2,000mg, IV Vancomycin HCI 1,500mg. Question: Can you further specify Sepsis per the clinical indicators above? Please document a response in the Progress Notes or Discharge Summary. 1. Sepsis due to pneumonia with severe sepsis due to acute respiratory failure. 2. Sepsis due to pneumonia with acute respiratory failure unrelated to sepsis(no severe sepsis). 3. Other, with explanation of the clinical findings. 4. Clinically undetermined, no explanation for the clinical findings. PHYSICIAN RESPONSE Can you specify per above: 1 Please remember a lack of response to the above will prompt a phone page by CDI/Coding staff. In responding to this query, please exercise your independent professional judgment. The purpose of this communication is to more accurately reflect the complexity of your patients condition. The fact that a question is asked does not imply that any particular answer is desired or expected. Thank you for your timely response to this clarification. Requestors name: Franca Quinones [facility] Phone # ext [phone] or [phone] THIS PHYSICIAN QUERY FORM IS A PERMANENT PART OF THE MEDICAL RECORD FRANCA QUINONES Nov 04, 2019 14:10 PHUC WASHINGTON MD Nov 04, 2019 16:27
[2019-11-04] MEDS ORDERED: KCL 20 MEQ TAB (K-DUR) PO NR ×2 (14:30→16:30)
[2019-11-04] MEDS ORDERED: VANCOMYCIN 1 GM/NS 250 ML IVPB IV SCH ×2 (15:00)
[2019-11-04] MEDS: ADVAIR HFA 115/21 MCG INHALER 8 GM IH SCH (18:25)
[2019-11-04] MEDS: DOCUSATE SODIUM 100 MG (COLACE) CAP PO SCH (19:59)
[2019-11-04] MEDS ORDERED: NON-FORMULARY MEDICATION 1 EA EA (Budesonide/Formoterol Fumarate (Symbicort 160-4.5 Mcg In IH SCH (21:00)
[2019-11-04] MEDS ORDERED: doxAzosin 4 MG (CARDURA) TAB PO SCH (21:00)
[2019-11-05] MEDS: RT-ALBUTEROL/IPRATROPIUM 3 ML (DUONEB) VIAL INH SCH ×3 (01:30→10:19)
[2019-11-05 04:00] VITALS: BP 101/62
[2019-11-05 05:50] LABS: BASOPHILS % (AUTO) 0 % (0-10); EOSINOPHILS % (AUTO) 0 % (0-10); HEMATOCRIT 33 % (40-54); HEMOGLOBIN 10.3 G/DL (13.3-17.7); LYMPHOCYTES % (AUTO) 7 % (12-44); MEAN CORPUSCULAR HEMOGLOBIN 29 PG (25-34); MEAN CORPUSCULAR HGB CONC 31 G/DL (32-36); MEAN CORPUSCULAR VOLUME 93 FL (80-99); MEAN PLATELET VOLUME 9.4 FL (7.4-10.4); MONOCYTES # (AUTO) 0.9 X 10^3 (0.0-1.0); MONOCYTES % (AUTO) 7 % (0-12); NEUTROPHILS % (AUTO) 86 % (42-75); PLATELET COUNT 274 10^3/uL (130-400); RED CELL DISTRIBUTION WIDTH 14.8 % (10.0-14.5); WHITE BLOOD COUNT 13.9 10^3/uL (4.3-11.0)
[2019-11-05] MEDS ORDERED: POTASSIUM CL 10MEQ/50ML IVPB 50 ML IV SCH (06:00)
[2019-11-05] MEDS ORDERED: MAGNESIUM 1 GM/100 ML IVPB 100 ML IV SCH (06:00)
[2019-11-05] MEDS ORDERED: KCL 20 MEQ TAB (K-DUR) PO SCH (06:00)
[2019-11-05 06:03] LABS: POTASSIUM 3.1 MMOL/L (3.6-5.0)
[2019-11-05 06:04] LABS: CALCIUM 9.4 MG/DL (8.5-10.1)
[2019-11-05] MEDS: inSUlin ASPART (NovoLOG) 1 UNIT/0.01 ML (CHARGE PER UNIT) SC SCH ×2 (06:06→11:03)
[2019-11-05 06:08] LABS: CREATININE SERUM 1.7 MG/DL (0.60-1.30)
[2019-11-05] MEDS: FUROSEMIDE 20 MG (LASIX) TAB PO SCH (06:17)
[2019-11-05] MEDS ORDERED: predniSONE 20 MG TAB PO SCH (07:00)
[2019-11-05] MEDS ORDERED: KCL 20 MEQ TAB (K-DUR) PO ONE ×3 (07:00→09:00)
[2019-11-05 08:00] VITALS: BP 102/61
[2019-11-05] MEDS ORDERED: UMECLIDINIUM BROMIDE (INCRUSE ELLIPTA) 7'S IH SCH (08:00)
[2019-11-05] MEDS ORDERED: ALLOPURINOL 300 MG (ZYLOPRIM) TAB PO SCH (09:00)
[2019-11-05] MEDS ORDERED: NON-FORMULARY MEDICATION 1 EA EA (Tiotropium Bromide (Spiriva Respimat 2.5MCG/ACTUATION) 2 IH SCH (09:00)
[2019-11-05] MEDS ORDERED: PANTOPRAZOLE 40 MG (PROTONIX) TAB PO SCH (09:00)
[2019-11-05] MEDS: DOCUSATE SODIUM 100 MG (COLACE) CAP PO SCH (09:01)
[2019-11-05] MEDS: APIXABAN 2.5 MG (ELIQUIS) TABLET PO SCH (09:01)
[2019-11-05] MEDS: ISOSORBIDE MONONITRATE 30 MG (IMDUR) TAB PO SCH (09:01)
[2019-11-05] MEDS: meTOprolol SUCCINATE 100 MG (TOPROL XL) TAB PO SCH (09:01)
[2019-11-05] MEDS: LACTATED RINGERS 1,000 ML IV SCH (09:39)
--- NOTE | 2019-11-05 09:40 | NUR ---
LR NOT STARTED BECAUSE WILL DC THIS AM PER DR WASHINGTON
[2019-11-05] MEDS ORDERED: CEFD300C3 PO (10:16)
[2019-11-05] MEDS ORDERED: PRED10TA22 PO (10:16)
[2019-11-05] MEDS: ADVAIR HFA 115/21 MCG INHALER 8 GM IH SCH (10:19)
--- NOTE | 2019-11-05 11:04 | NUR ---
BS NOT TAKEN PRIOR TO DC, NOVOLOG NON ADMINISTERED
[2019-11-05 11:35] VITALS: BP 102/61
--- NOTE | 2019-11-05 11:35 | NUR ---
LORI CASTREJON demonstrates understanding of discharge instructions and accurately returns instructions upon questioning. Copy of Post-Discharge Instructions and Medication Discharge Instructions given to PT. LORI CASTREJON is able to manage continuing needs after discharge. Patients belongings returned to PT. Skin dry and intact; no breakdown noted. Patient discharged from 408-1 on at 1135 . LORI CASTREJON left floor via WC, accompanied by STAFF.
--- NOTE | 2019-11-05 11:40 | Discharge Summary ---
Discharge Summary Reconcile Patient Problems Problems Reviewed?: Yes Instructions for Patient Via [facility], Assessment/Instructions Take medications as prescribed. Participate in therapies. Follow-up with your primary care physician. Physician to follow Patient: RI Discharge Diet for Home: No Restrictions Hospital Course Date of Admission: Nov 03, 2019 at 14:38 Admission Diagnosis : Sepsis due to pneumonia Family Physician/Provider: [facility] Physician Date of Discharge: 11/05/19 Discharge Diagnosis: Sepsis due to pneumonia Hospital Course: Manny Funes is a 68-year-old male who was admitted with sepsis due to pneumonia. He was treated with IV antibiotics and improved. He was transitioned to oral antibiotics and already see her course of Omnicef as an outpatient. He was also treated for a COPD exacerbation and no was given a taper of steroids to complete as an outpatient. He was set up with [facility] for physical therapy. He should follow-up with his primary care physician in a week. Labs and Pending Lab Test: Laboratory Tests 11/04/19 15:53: Glucometer 212H 11/04/19 20:21: Glucometer 175H 11/05/19 05:05: White Blood Count 13.9H, Red Blood Count 3.57L, Hemoglobin 10.3L, Hematocrit 33L , Mean Corpuscular Volume 93, Mean Corpuscular Hemoglobin 29, Mean Corpuscular Hemoglobin Concent 31L, Red Cell Distribution Width 14.8H, Platelet Count 274, Mean Platelet Volume 9.4, Neutrophils (%) (Auto) 86H, Lymphocytes (%) (Auto) 7L, Monocytes (%) (Auto) 7, Eosinophils (%) (Auto) 0, Basophils (%) (Auto) 0, Neutrophils # (Auto) 12.0H, Lymphocytes # (Auto) 1.0, Monocytes # (Auto) 0.9, Eosinophils # (Auto) 0.0, Basophils # (Auto) 0.0, Sodium Level 139, Potassium Level 3.1L, Chloride Level 95L, Carbon Dioxide Level 31, Anion Gap 13, Blood Urea Nitrogen 36H, Creatinine 1.70H, Estimat Glomerular Filtration Rate 40, BUN/Creatinine Ratio 21, Glucose Level 130H, Calcium Level 9.4, Magnesium Level 2.0 Microbiology 11/03/19 Blood Culture - Preliminary, Resulted No growth 11/03/19 Urine Culture - Final, Complete NO GROWTH Home Meds Active Prednisone 10 Mg Tab.ds.pk 10 Mg PO DAILY Take 6 tabs(60mg)daily,decrease by 1 tab(10MG)daily. Cefdinir 300 Mg Capsule 300 Mg PO BID 5 Days Reported Levalbuterol HCl 1.25 Mg/3 Ml Vial.neb 1.25 Mg IH Q 3H PRN SHAKE WELL AND RINSE MOUTH WITH WATER AFTER EACH USE Prednisone 10 Mg Tab 5 Mg PO DAILY TAKES (10MG) TAB FILLED 10-28-2019 #10 Spiriva Respimat 2.5MCG/ACTUATION (Tiotropium [place]) 4 Gm Mist.inhal 2 Puff IH DAILY Proair Hfa (Albuterol Sulfate) 1 Puff Puff 2 Puff IH Q4H PRN Symbicort 160-4.5 Mcg Inhaler (Budesonide/Formoterol Fumarate) 10.2 Gm Hfa.aer.ad 2 Puff IH BID Vitamin D3 (Cholecalciferol (Vitamin D3)) 25 Mcg Capsule 50 Mcg PO DAILY Miralax (Polyethylene Glycol 3350) 17 Gm Powd.pack 17 Gm PO DAILY PRN Zyrtec (Cetirizine HCl) 10 Mg Tablet 5 Mg PO DAILY Ferrous Gluconate 324 Mg Tablet 324 Mg PO 1700 Metolazone 5 Mg Tablet 2.5 Mg PO WEEK Doxazosin Mesylate 4 Mg Tablet 2 Mg PO HS Eliquis (Apixaban) 5 Mg Tablet 2.5 Mg PO BID Fluticasone Propionate 16 Gm [place].susp 2 Sprays NS DAILY PRN Allopurinol 300 Mg Tablet 300 Mg PO DAILY Glipizide 5 Mg Tablet 2.5 Mg PO DAILY TAKES (5MG) TAB TO EQUAL 2.5MG DAILY Pantoprazole Sodium 40 Mg Tablet.dr 40 Mg PO DAILY Docusate Sodium 100 Mg Capsule 100 Mg PO BID HOLD FOR LOOSE STOOL/DIARRHEA Capsaicin 42.5 Gm Cream..g. 1 Applic TP PRN APPLY TO AFFECTED AREA TWO TIMES A DAY NEEDED FOR PAIN Nitroglycerin 0.4 Mg Tab.subl 0.4 Mg SL UD PRN DISSOLVE ONE TABLET UNDER THE TONGUE ONCE NEEDED FOR CHEST PAIN-MAY TAKE 2 ADDITIONAL DOSES. 5 MINUTES APART. Isosorbide Mononitrate ER (Isosorbide Mononitrate) 30 Mg Tab.er.24h 30 Mg PO DAILY Furosemide 40 Mg Tablet 40 Mg PO BID Metoprolol Succinate 100 Mg Tab.er.24h 150 Mg PO DAILY TAKES 1 & (100MG) TABS TO EQUAL 150MG DAILY Patient Allergies: Coded Allergies: Penicillins (Verified Allergy, Unknown, 10/10/19) acetaminophen (Verified Allergy, Unknown, 10/10/19) gabapentin (Verified Allergy, Unknown, 10/10/19) lisinopril (Verified Allergy, Unknown, 10/10/19) simvastatin (Verified Allergy, Unknown, 10/10/19) varenicline (Verified Allergy, Unknown, 10/10/19) Home Health Need/Face to Face Date of Face to Face: Nov 05, 2019 Clinical Findings: Generalized weakness and fatigue, Muscle weakness, Shortness of breath I have seen Pt [id number]: Yes Discharged To: Home Diagnosis/Conditions: COPD, debility Problems/Diagnosis/Condition: (1) Debility (2) COPD (chronic obstructive pulmonary disease) Patient is Homebound due to: Muscle weakness, Shortness of breath/distress Homebound Status Due to the above stated illness, injury or surgical procedure (medical condition or diagnosis) and associated clinical findings, the patient is homebound because of his/her inability to leave home except with aid of a supportive device and/or person AND leaving the home requires a considerable and taxing effort or is medically contraindicated. Pt req the following assistanc: Aid of another person Home Health Nursing Orders Home Health Services Order: Nursing Services, Physical Therapy-Evaluate & Treat Home Health Infusion Therapy Line Start Date: Nov 03, 2019 Therapy Orders Therapy Orders: Physical Therapy, PT to assess for OT Therapy Specific Orders: Eval assistive deivces, Gait training, Increase strength/endurance Certify Stmt I certify that this patient is under my care and that I, a nurse practitioner or a physician; a assistant foreman working with me, had a face to face encounter that - meets the physician face to face encounter requirements with this patient as dated. Discharge Physical Exam General: Alert, Oriented X3, Cooperative, No Acute Distress HEENT: Atraumatic, EOMI, Mucous Memb Moist/[place] Lungs: Clear to Auscultation, Normal Air Movement Heart: Regular Rate, Normal S1, Normal S2, No Murmurs Abdomen: Normal Bowel Sounds, Soft, No Tenderness Neuro: Normal Speech Psych/Mental Status: Mental Status NL, Mood NL PHUC WASHINGTON MD Nov 05, 2019 11:40
--- NOTE | 2019-11-05 14:01 | NUR ---
CM/SS: Visited with pt as to plan for discharge Plan: Pt to return home with [facility] ([place]) and follow up with [facility]. Summary: Pt is in the process of getting ready to discharge back to home today. Pt [facility] and goes to the [facility] in [place], [place]. Pt is open to having Home Care services with physical therapy to get stronger. Pt can not remember where he had home care before, he thinks [facility]. [facility] home care is now [facility]. Pt is open to a referral to be made there for services. [facility] RN Chayito Quiroz contacted - [phone] ext [phone] - She is updated on pt status and the need for Home Care. She has indicated he can choose whomever to provide the service and utilize [facility] of [facility]. Chayito reports that [facility] will follow. [facility] [phone] contacted. They are able to go to [place], [place], where pt lives at. Information and referral faxed over. Information also faxed to [facility] for their records.
== END 2019-11-05 11:35 | disposition home health service (06) | DRG 871 ==
LOC: EDUNIT# 12:52 → ER 12:53 → 4TH 14:38
PROVIDERS: ADMIT Internal Medicine; ATTEND Internal Medicine
DX: A41.9 Sepsis, unspecified organism (principal); R65.20 Severe sepsis without septic shock; J18.9 Pneumonia, unspecified organism; J44.1 Chronic obstructive pulmonary disease with (acute) exacerbation; J44.0 Chronic obstructive pulmonary disease with (acute) lower respiratory infection; J96.01 Acute respiratory failure with hypoxia; I12.9 Hypertensive chronic kidney disease with stage 1 through stage 4 chronic kidney disease, or unspecified chronic kidney disease; N18.3 Chronic kidney disease, stage 3 (moderate); I50.9 Heart failure, unspecified; E11.9 Type 2 diabetes mellitus without complications; I25.10 Atherosclerotic heart disease of native coronary artery without angina pectoris; I48.91 Unspecified atrial fibrillation; E78.5 Hyperlipidemia, unspecified; Z87.891 Personal history of nicotine dependence; Z99.81 Dependence on supplemental oxygen; Z79.52 Long term (current) use of systemic steroids; Z79.84 Long term (current) use of oral hypoglycemic drugs; Z95.810 Presence of automatic (implantable) cardiac defibrillator
CPT/HCPCS: 36415; 71045; 80048; 80053; 81000; 82962; 83605; 83615; 83735; 83880; 84145; 84484; 85007; 85025; 85027; 85379; 85610; 85652; 85730; 86141; 87040; 87088; 93005; 94640; 94760; 96374; 96375

== ENCOUNTER 2019-11-10 10:51 | Emergency (ER) | payer OTHER ==
[~2019-11-10] VITALS: Ht 175.2 cm; Wt 79.8 kg
[~2019-11-10 10:51] MED LIST changes: +APIX5TAB PO; +BUDE10.2 IH; +CEFD300C3 PO; +CETI10TA21 PO; +CHOL10007 PO; +DOXA4TAB2 PO; +FERR325T17 PO; +LEVA1.2543 IH; +METO5TAB6 PO; +PRD10T PO; +RT-ALBUINH IH; +TIOT4MIS2 IH
--- NOTE | 2019-11-10 10:54 | ED Cough/URI ---
General Stated Complaint: SOA Source: patient Exam Limitations: no limitations History of Present Illness Date Seen by Provider: Nov 10, 2019 Time Seen by Provider: 10:54 Initial Comments 68-year-old male brought in with shortness of breath. Patient was seen on 11/03/19 and admitted due to a right middle lobe pneumonia. Patient reports that he got out show after that. Patient states that 2 days ago he started feeling "like shit" with some mild increased shortness of breath. He is using his nebulizers 4 times a day. Patient denies any fever. He does have increased cough. Patient has chronic COPD and is on 2-3 L home oxygen. Allergies and Home Medications Allergies Coded Allergies: Penicillins (Verified Allergy, Unknown, 10/10/19) acetaminophen (Verified Allergy, Unknown, 10/10/19) gabapentin (Verified Allergy, Unknown, 10/10/19) lisinopril (Verified Allergy, Unknown, 10/10/19) simvastatin (Verified Allergy, Unknown, 10/10/19) varenicline (Verified Allergy, Unknown, 10/10/19) Home Medications Albuterol Sulfate 1 Puff Puff, 2 PUFF IH Q4H PRN for SHORTNESS OF BREATH, (Reported) Allopurinol 300 Mg Tablet, 300 MG PO DAILY, (Reported) Apixaban 5 Mg Tablet, 2.5 MG PO BID, (Reported) Budesonide/Formoterol Fumarate 10.2 Gm Hfa.aer.ad, 2 PUFF IH BID, (Reported) Capsaicin 42.5 Gm Cream..g., 1 APPLIC TP PRN, (Reported) APPLY TO AFFECTED AREA TWO TIMES A DAY NEEDED FOR PAIN Cefdinir 300 Mg Capsule, 300 MG PO BID Prescribed by: PHUC WASHINGTON on 11/05/19 1016 Cetirizine HCl 10 Mg Tablet, 5 MG PO DAILY, (Reported) Cholecalciferol (Vitamin D3) 25 Mcg Capsule, 50 MCG PO DAILY, (Reported) Docusate Sodium 100 Mg Capsule, 100 MG PO BID, (Reported) HOLD FOR LOOSE STOOL/DIARRHEA Doxazosin Mesylate 4 Mg Tablet, 2 MG PO HS, (Reported) Ferrous Gluconate 324 Mg Tablet, 324 MG PO 1700, (Reported) Fluticasone Propionate 16 Gm [place].susp, 2 SPRAYS NS DAILY PRN for CONGESTION, (Reported) Furosemide 40 Mg Tablet, 40 MG PO BID, (Reported) Glipizide 5 Mg Tablet, 2.5 MG PO DAILY, (Reported) TAKES (5MG) TAB TO EQUAL 2.5MG DAILY Isosorbide Mononitrate 30 Mg Tab.er.24h, 30 MG PO DAILY, (Reported) Levalbuterol HCl 1.25 Mg/3 Ml Vial.neb, 1.25 MG IH Q 3H PRN for SHORTNESS OF BREATH, (Reported) SHAKE WELL AND RINSE MOUTH WITH WATER AFTER EACH USE Metolazone 5 Mg Tablet, 2.5 MG PO WEEK, (Reported) Metoprolol Succinate 100 Mg Tab.er.24h, 150 MG PO DAILY, (Reported) TAKES 1 & (100MG) TABS TO EQUAL 150MG DAILY Nitroglycerin 0.4 Mg Tab.subl, 0.4 MG SL UD PRN for CHEST PAIN, (Reported) DISSOLVE ONE TABLET UNDER THE TONGUE ONCE NEEDED FOR CHEST PAIN-MAY TAKE 2 ADDITIONAL DOSES. 5 MINUTES APART. Pantoprazole Sodium 40 Mg Tablet.dr, 40 MG PO DAILY, (Reported) Polyethylene Glycol 3350 17 Gm Powd.pack, 17 GM PO DAILY PRN for CONSTIPATION- 2ND LINE, (Reported) Prednisone 10 Mg Tab, 5 MG PO DAILY, (Reported) TAKES (10MG) TAB FILLED 10-28-2019 #10 Prednisone 10 Mg Tab.ds.pk, 10 MG PO DAILY Take 6 tabs(60mg)daily,decrease by 1 tab(10MG)daily. Prescribed by: PHUC WASHINGTON on 11/05/19 1016 Tiotropium [place] 4 Gm Mist.inhal, 2 PUFF IH DAILY, (Reported) Patient Home Medication List Home Medication List Reviewed: Yes Review of Systems Review of Systems Constitutional: No chills, No fever Respiratory: cough, short of breath Cardiovascular: No chest pain, No palpitations Gastrointestinal: no symptoms reported Genitourinary: no symptoms reported Musculoskeletal: no symptoms reported Skin: no symptoms reported Psychiatric/Neurological: No Symptoms Reported Past Cslyiey-Yvpgkc-Qbteih Hx Past Med/Social Hx: Reviewed Nursing Past Med/Soc Hx Patient Social History Type Used: Cigarettes Former Smoker, Quit: Sep 21, 2015 Recent Hopitalizations: Yes (COPD EXACERBATION) Immunizations Up To Date Date of Pneumonia Vaccine: Oct 10, 2015 Date of Influenza Vaccine: May 11, 2019 Seasonal Allergies Seasonal Allergies: No Past Medical History Surgeries: Yes (PACER/DEFIB) Orthopedic, Pacemaker, Tonsillectomy Respiratory: Yes COPD Cardiac: Yes (PACER/DEFIB) Chronic Edema/Swelling, Coronary Artery Disease, Hypertension Neurological: No Genitourinary: No Gastrointestinal: No Musculoskeletal: No Endocrine: Yes Diabetes, Non-Insulin dep HEENT: No Cancer: No Psychosocial: No Integumentary: No Blood Disorders: No Family Medical History AIDS Physical Exam Vital Signs - First Documented 11/10/19 10:52 Temp 36.7 Pulse 87 Resp 20 B/P (MAP) 111/75 (87) Pulse Ox 92 O2 Delivery Nasal Cannula O2 Flow Rate 3.00 Capillary Refill : Height: '" Weight: lbs. oz. kg; 25.79 BMI Method: General Appearance: WD/WN, no apparent distress HEENT: PERRL/EOMI, normal ENT inspection Respiratory: decreased breath sounds (moderate diffuse); No rales, No wheezing Cardiovascular: normal peripheral pulses, regular rate, rhythm, no edema Extremities: normal inspection Neurologic/Psychiatric: alert, normal mood/affect, oriented x 3 Skin: warm/dry Lymphatic: no adenopathy Progress/Results/Core Measures Suspected Sepsis SIRS Temperature: Pulse: Respiratory Rate: Laboratory Tests 11/10/19 11:10: White Blood Count 26.5H Blood Pressure / Mean: Laboratory Tests 11/10/19 11:10: Creatinine 1.59H, Platelet Count 464H, Total Bilirubin 0.4 Results/Orders Lab Results Laboratory Tests Test 11/10/19 11:10 Range/Units White Blood Count 26.5 H 4.3-11.0 10^3/uL Red Blood Count 4.43 4.35-5.85 10^6/uL Hemoglobin 13.0 #L 13.3-17.7 G/DL Hematocrit 42 40-54 % Mean Corpuscular Volume 95 80-99 FL Mean Corpuscular Hemoglobin 29 25-34 PG Mean Corpuscular Hemoglobin Concent 31 L 32-36 G/DL Red Cell Distribution Width 15.1 H 10.0-14.5 % Platelet Count 464 H 130-400 10^3/uL Mean Platelet Volume 9.5 7.4-10.4 FL Neutrophils (%) (Auto) 89 H 42-75 % Lymphocytes (%) (Auto) 6 L 12-44 % Monocytes (%) (Auto) 4 0-12 % Eosinophils (%) (Auto) 0 0-10 % Basophils (%) (Auto) 0 0-10 % Neutrophils # (Auto) 23.7 H 1.8-7.8 X 10^3 Lymphocytes # (Auto) 1.6 1.0-4.0 X 10^3 Monocytes # (Auto) 1.1 H 0.0-1.0 X 10^3 Eosinophils # (Auto) 0.1 0.0-0.3 10^3/uL Basophils # (Auto) 0.0 0.0-0.1 10^3/uL Neutrophils % (Manual) 89 % Lymphocytes % (Manual) 5 % Monocytes % (Manual) 4 % Eosinophils % (Manual) 0 % Basophils % (Manual) 0 % Myelocytes % 1 % Band Neutrophils 1 % Anisocytosis SLIGHT Sodium Level 140 135-145 MMOL/L Potassium Level 3.6 3.6-5.0 MMOL/L Chloride Level 88 L 98-107 MMOL/L Carbon Dioxide Level 38 H 21-32 MMOL/L Anion Gap 14 5-14 MMOL/L Blood Urea Nitrogen 28 H 7-18 MG/DL Creatinine 1.59 H 0.60-1.30 MG/DL Estimat Glomerular Filtration Rate 43 BUN/Creatinine Ratio 18 Glucose Level 108 H 70-105 MG/DL Calcium Level 10.0 8.5-10.1 MG/DL Corrected Calcium 10.1 8.5-10.1 MG/DL Total Bilirubin 0.4 0.1-1.0 MG/DL Aspartate Amino Transf (AST/SGOT) 26 5-34 U/L Alanine Aminotransferase (ALT/SGPT) 36 0-55 U/L Alkaline Phosphatase 75 40-136 U/L Troponin I 0.116 H <0.028 NG/ML B-Type Natriuretic Peptide 421.8 H <100.0 PG/ML Total Protein 7.3 6.4-8.2 GM/DL Albumin 3.9 3.2-4.5 GM/DL My Orders Orders - DARLING,ROCIO L DO Chest Pa/Lat (2 View) (11/10/19 11:06) BNP (11/10/19 11:06) Cbc With Automated Diff (11/10/19 11:06) Comprehensive Metabolic Panel (11/10/19 11:06) Troponin I (11/10/19 11:06) Ekg Tracing (11/10/19 11:06) Magnesium 1 Gm/100 Ml Ivpb (Magnesium Hernandez (11/10/19 11:15) Manual Differential (11/10/19 11:10) Ed Iv/Invasive Line Start (11/10/19 11:43) Ns Iv 500 Ml (Sodium Chloride 0.9%) (11/10/19 11:43) Levofloxacin 500 Mg/100 Ml Iv (Levaquin (11/10/19 12:45) Medications Given in ED Current Medications Medications Dose Ordered Sig/Mabel Route Start Time Stop Time Status Last Admin Dose Admin Levofloxacin/ Dextrose 100 ml @ 100 mls/hr ONCE ONCE IV 11/10/19 12:45 11/10/19 13:44 DC 11/10/19 13:32 100 MLS/HR Sodium Chloride 500 ml @ 0 mls/hr Q0M ONCE IV 11/10/19 11:43 11/10/19 11:44 DC 11/10/19 12:20 500 MLS/HR Vital Signs/I&O 11/10/19 10:52 Temp 36.7 Pulse 87 Resp 20 B/P (MAP) 111/75 (87) Pulse Ox 92 O2 Delivery Nasal Cannula O2 Flow Rate 3.00 Capillary Refill : Progress Note : Time: 14:02 Progress Note Patient with some labs consistent with dehydration. He does have slight worsening of his infiltrate on x-ray. I discussed lab and x-ray findings with patient. Patient however states he still on 100 times better after IV fluid and mag. At this time he would prefer a trial of another antibiotic at home. I will start him on a low-dose of the Levaquin. Patient is stable at discharge. He is not requiring any increased oxygen from his baseline. Patient is stable and will be discharged home. Diagnostic Imaging Diagonstic Imaging: Xray Plain Films/CT/US/NM/MRI: chest Comments NAME: LORI CASTREJON [facility] REC#: [id number] PT STATUS: REG ER : 1950 PHYSICIAN: ROCIO DARLING DO ADMIT DATE: 11/10/19/ER Draft Date of Exam:11/10/19 CHEST PA/LAT (2 VIEW) INDICATION: Positive for COVID. Shortness of air. EXAMINATION: 2 view chest 11/10/2019./ COMPARISON: 11/03/2019 FINDINGS: 2 views of the chest redemonstrate a patchy airspace opacity in the right mid to lower lung. The lungs are better aerated on today's examination. Linear markings bilaterally likely chronic in nature. No effusions. No pneumothorax. The heart is stable. The pulmonary vasculature and the heart unchanged. There is a left-sided pacemaker stable in appearance. IMPRESSION: 1. Persistent to slightly more consolidated infiltrate in the right mid to lower lung continued, followup recommended. Remaining findings appear chronic. Departure Impression Primary Impression: Right middle lobe pneumonia Qualified Codes: J18.1 - Lobar pneumonia, unspecified organism Disposition: HOME, SELF-CARE Condition: Stable Departure-Patient Inst. Referrals: NO,LOCAL PHYSICIAN (PCP/Family) Primary Care Physician Patient Instructions: Pneumonia, Adult (DC) Add. Discharge Instructions: Follow-up either in person or by phone with your primary care provider in 2 days. Return to the ER as needed Scripts Doxycycline Hyclate (Doxycycline Hyclate) 100 Mg Tablet 100 MG PO BID, #20 TAB 0 Refills Prov: ROCIO DARLING DO 11/10/19 ROCIO DARLING DO Nov 10, 2019 10:54
--- OUTSIDE RECORDS SUMMARY | 2019-11-10 11:15 | XMS REPORT | Continuity of Care Document ---
Author Organization Unknown Address Unknown Phone Unavailable Allergies Active Description Code Type Severity Reaction Onset Reported/Identified Relationship to Patient Clinical Status Yes acetaminophen [id number] John g Allergy Unknown N/A 10/10/2019 Yes gabapentin [id number] Drug Allerg y Unknown N/A 10/10/2019 Yes lisinopril [id number] Drug Allerg y Unknown N/A 10/10/2019 Yes Penicillins [id number] Drug Aller gy Unknown N/A 10/10/2019 Yes simvastatin [id number] Drug Aller gy Unknown N/A 10/10/2019 Yes varenicline [id number] Drug Aller gy Unknown N/A 10/10/2019 Medications There is no data. Problems Date Dx Coded Attending Type Code Diagnosis Diagnosed By 09/17/2017 LISA HEATON APRN Ot I08.3 COMB RHEUMATIC DISORD OF [place], AORTIC 09/17/2017 LISA HEATON APRN Ot I47.1 SUPRAVENTRICULAR TACHYCARDIA 09/24/2017 LISA HEATON APRN Ot I08.3 COMB RHEUMATIC DISORD OF [place], AORTIC 09/24/2017 LISA HEATON APRN Ot I47.1 SUPRAVENTRICULAR TACHYCARDIA 10/12/2019 PHUC WASHINGTON MD Ot E11. 9 TYPE 2 DIABETES MELLITUS WITHOUT COMPLIC 10/12/2019 PHUC WASHINGTON MD Ot E78. 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 0 HYP HRT CHR KDNY DIS W HRT FAIL AND ST 10/12/2019 PHUC WASHINGTON MD Ot I25. 10 ATHSCL HEART DISEASE OF [place] CORONARY 10/12/2019 PHUC WASHINGTON MD Ot I48. 0 PAROXYSMAL ATRIAL FIBRILLATION 10/12/2019 PHUC WASHINGTON MD Ot I50. 23 ACUTE ON CHRONIC SYSTOLIC (CONGESTIVE) H 10/12/2019 PHUC WASHINGTON MD, Ot J44. 1 CHRONIC OBSTRUCTIVE PULMONARY DISEASE W 10/12/2019 PHUC WASHINGTON MD, Ot J96. 01 ACUTE RESPIRATORY FAILURE WITH HYPOXIA 10/12/2019 PHUC WASHINGTON MD, Ot K21. 9 GASTRO-ESOPHAGEAL REFLUX DISEASE WITHOUT 10/12/2019 PHUC WASHINGTON MD, Ot M10. 9 GOUT, UNSPECIFIED 10/12/2019 PHUC WASHINGTON MD, Ot N18. 3 CHRONIC KIDNEY DISEASE, STAGE 3 (MODERAT 10/12/2019 PHUC WASHINGTON MD, Ot N28. 9 DISORDER OF KIDNEY AND URETER, UNSPECIFI 10/12/2019 PHUC WASHINGTON MD, Ot Z79. 01 PRISON (CURRENT) USE OF ANTICOAGULANT 10/12/2019 PHUC WASHINGTON MD, Ot Z79. 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 0 ALLERGY STATUS TO PENICILLIN 10/12/2019 PHUC WASHINGTON MD, Ot Z88. 8 ALLERGY STATUS TO OTH DRUG/MEDS/BIOL SUB 10/12/2019 PHUC WASHINGTON MD Ot Z95. 5 PRESENCE OF CORONARY ANGIOPLASTY IMPLANT 10/12/2019 PHUC WASHINGTON MD Ot Z95.810 PRESENCE OF AUTOMATIC (IMPLANTABLE) CARD 10/12/2019 PHUC WASHINGTON MD Ot Z99. 81 DEPENDENCE ON SUPPLEMENTAL OXYGEN 10/12/2019 PHUC WASHINGTON MD Ot E11. 9 TYPE 2 DIABETES MELLITUS WITHOUT COMPLIC 10/12/2019 PHUC WASHINGTON MD, Ot E78. 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 0 HYP HRT CHR KDNY DIS W HRT FAIL AND ST 10/12/2019 PHUC WASHINGTON MD, Ot I25. 10 ATHSCL HEART DISEASE OF [place] CORONARY 10/12/2019 PHUC WASHINGTON MD, Ot I48. 0 PAROXYSMAL ATRIAL FIBRILLATION 10/12/2019 PHUC WASHINGTON MD, Ot I50. 23 ACUTE ON CHRONIC SYSTOLIC (CONGESTIVE) H 10/12/2019 PHUC WASHINGTON MD, Ot J44. 1 CHRONIC OBSTRUCTIVE PULMONARY DISEASE W 10/12/2019 PHUC WASHINGTON MD, Ot J96. 01 ACUTE RESPIRATORY FAILURE WITH HYPOXIA 10/12/2019 PHUC WASHINGTON MD, Ot K21. 9 GASTRO-ESOPHAGEAL REFLUX DISEASE WITHOUT 10/12/2019 PHUC WASHINGTON MD, Ot M10. 9 GOUT, UNSPECIFIED 10/12/2019 PHUC WASHINGTON MD, Ot N18. 3 CHRONIC KIDNEY DISEASE, STAGE 3 (MODERAT 10/12/2019 PHUC WASHINGTON MD, Ot N28. 9 DISORDER OF KIDNEY AND URETER, UNSPECIFI 10/12/2019 PHUC WASHINGTON MD, Ot Z79. 01 PRISON (CURRENT) USE OF ANTICOAGULANT 10/12/2019 PHUC WASHINGTON MD, Ot Z79. 84 PRISON (CURRENT) USE OF ORAL HYPOGLYC 10/12/2019 PHUC WASHINGTON MD, Ot Z79.899 OTHER SENSITOMETRIST (CURRENT) DRUG THERAPY 10/12/2019 PHUC WASHINGTON MD, Ot Z87.891 PERSONAL HISTORY OF NICOTINE DEPENDENCE 10/12/2019 PHUC WASHINGTON MD, Ot Z88. 0 ALLERGY STATUS TO PENICILLIN 10/12/2019 PHUC WASHINGTON MD, Ot Z88. 8 ALLERGY STATUS TO OTH DRUG/MEDS/BIOL SUB 10/12/2019 PHUC WASHINGTON MD Ot Z95. 5 PRESENCE OF CORONARY ANGIOPLASTY IMPLANT 10/12/2019 PHUC WASHINGTON MD Ot Z95.810 PRESENCE OF AUTOMATIC (IMPLANTABLE) CARD 10/12/2019 PHUC WASHINGTON MD Ot Z99. 81 DEPENDENCE ON SUPPLEMENTAL OXYGEN 11/05/2019 PHUC WASHINGTON MD, Ot A41. 9 SEPSIS, UNSPECIFIED ORGANISM 11/05/2019 PHUC WASHINGTON MD, Ot E11. 9 TYPE 2 DIABETES MELLITUS WITHOUT COMPLIC 11/05/2019 PHUC WASHINGTON MD, Ot E78. 5 HYPERLIPIDEMIA, UNSPECIFIED 11/05/2019 PHUC WASHINGTON MD, Ot I12. 9 HYPERTENSIVE CHRONIC KIDNEY DISEASE W ST 11/05/2019 PHUC WASHINGTON MD, Ot I25. 10 ATHSCL HEART DISEASE OF [place] CORONARY 11/05/2019 FELIX MD, PHUC M Ot I48. 91 UNSPECIFIED ATRIAL FIBRILLATION 11/05/2019 PHUC WASHINGTON MD Ot I50. 9 HEART FAILURE, UNSPECIFIED 11/05/2019 PHUC WASHINGTON MD Ot J18. 9 PNEUMONIA, UNSPECIFIED ORGANISM 11/05/2019 PHUC WASHINGTON MD Ot J44. 0 CHR OBSTRUCTIVE PULMON DISEASE WITH (ACU 11/05/2019 PHUC WASHINGTON MD Ot J44. 1 CHRONIC OBSTRUCTIVE PULMONARY DISEASE W 11/05/2019 PHUC WASHINGTON MD Ot J96. 01 ACUTE RESPIRATORY FAILURE WITH HYPOXIA 11/05/2019 PHUC WASHINGTON MD, Ot N18. 3 CHRONIC KIDNEY DISEASE, STAGE 3 (MODERAT 11/05/2019 PHUC WASHINGTON MD, Ot Z79. 52 SENSITOMETRIST (CURRENT) USE OF SYSTEMIC STER 11/05/2019 PHUC WASHINGTON MD Ot Z79. 84 SENSITOMETRIST (CURRENT) USE OF ORAL HYPOGLYC 11/05/2019 PHUC WASHINGTON MD Ot Z87.891 PERSONAL HISTORY OF NICOTINE DEPENDENCE 11/05/2019 PHUC WASHINGTON MD Ot Z95.810 PRESENCE OF AUTOMATIC (IMPLANTABLE) CARD 11/05/2019 PHUC WASHINGTON MD Ot Z99. 81 DEPENDENCE ON SUPPLEMENTAL OXYGEN 11/05/2019 PHUC WASHINGTON MD Ot A41. 9 SEPSIS, UNSPECIFIED ORGANISM 11/05/2019 PHUC WASHINGTON MD Ot E11. 9 TYPE 2 DIABETES MELLITUS WITHOUT COMPLIC 11/05/2019 PHUC WASHINGTON MD Ot E78. 5 HYPERLIPIDEMIA, UNSPECIFIED 11/05/2019 PHUC WASHINGTON MD Ot I12. 9 HYPERTENSIVE CHRONIC KIDNEY DISEASE W ST 11/05/2019 PHUC WASHINGTON MD Ot I25. 10 ATHSCL HEART DISEASE OF [place] CORONARY 11/05/2019 PHUC WASHINGTON MD Ot I48. 91 UNSPECIFIED ATRIAL FIBRILLATION 11/05/2019 PHUC WASHINGTON MD Ot I50. 9 HEART FAILURE, UNSPECIFIED 11/05/2019 PHUC WASHINGTON MD Ot J18. 9 PNEUMONIA, UNSPECIFIED ORGANISM 11/05/2019 PHUC WASHINGTON MD Ot J44. 0 CHR OBSTRUCTIVE PULMON DISEASE WITH (ACU 11/05/2019 PHUC WASHINGTON MD Ot J44. 1 CHRONIC OBSTRUCTIVE PULMONARY DISEASE W 11/05/2019 PHUC WASHINGTON MD, Ot J96. 01 ACUTE RESPIRATORY FAILURE WITH HYPOXIA 11/05/2019 PHUC WASHINGTON MD, Ot N18. 3 CHRONIC KIDNEY DISEASE, STAGE 3 (MODERAT 11/05/2019 PHUC WASHINGTON MD, Ot R65. 20 SEVERE SEPSIS WITHOUT SEPTIC SHOCK 11/05/2019 PHUC WASHINGTON MD, Ot Z79. 52 SENSITOMETRIST (CURRENT) USE OF SYSTEMIC STER 11/05/2019 PHUC WASHINGTON MD, Ot Z79. 84 SENSITOMETRIST (CURRENT) USE OF ORAL HYPOGLYC 11/05/2019 PHUC WASHINGTON MD, Ot Z87.891 PERSONAL HISTORY OF NICOTINE DEPENDENCE 11/05/2019 PHUC WASHINGTON MD, Ot Z95.810 PRESENCE OF AUTOMATIC (IMPLANTABLE) CARD 11/05/2019 PHUC WASHINGTON MD, Ot Z99. 81 DEPENDENCE ON SUPPLEMENTAL OXYGEN Procedures There is no data. Results Test Result Range Influenza virus A and B antigen detectio n - 10/10/19 19:05 FLU RESULT NEGATIVE FOR INFLUENZA A AND B ANTIGENS BY [facility] Complete blood count (CBC) with automate d white blood cell (WBC) differential - 10/10/19 19:10 Blood leukocytes automated count (number/volume) 11.7 10*3/uL 4.3-11.0 Blood erythrocytes automated count (number/volume) 4.46 10*6/uL 4.35-5.85 Venous blood hemoglobin measurement (mass/volume) 13.0 g/dL 13.3-17.7 Blood hematocrit (volume fraction) 41 % 40-54 Automated erythrocyte mean corpuscular volume 93 [ foz_us] 80-99 Automated erythrocyte mean corpuscular h emoglobin (mass per erythrocyte) 29 pg 25-34 Automated erythrocyte mean corpuscular h emoglobin concentration measurement (mass/volume) 31 g/dL 32-36 Automated erythrocyte distribution width ratio 14. 9 % 10.0- 14.5 Automated blood platelet count (count/volume) 314 10*3/uL 130-400 Automated blood platelet mean volume measurement 9.1 [foz_us] 7.4-10.4 Automated blood neutrophils/100 leukocytes 70 % 42-75 Automated blood lymphocytes/100 leukocytes 18 % 12-44 Blood monocytes/100 leukocytes 8 % 0-12 Automated blood eosinophils/100 leukocytes 4 % 0-10 Automated blood basophils/100 leukocytes 0 % 0-10 Blood neutrophils automated count (number/volume) 8.1 10*3 1.8-7.8 Blood lymphocytes automated count (number/volume) 2.1 10*3 1.0-4.0 Blood monocytes automated count (number/volume) 0. 9 10*3 0.0-1.0 Automated eosinophil count 0.5 10*3/uL 0 .0-0.3 Automated blood basophil count (count/volume) 0.0 10*3/uL 0.0-0.1 Comprehensive metabolic panel - 10/10/19 19:10 Serum or plasma sodium measurement (moles/volume) 140 mmol/L 135-145 Serum or plasma potassium measurement (moles/volume) 3.7 mmol/L 3.6-5.0 Serum or plasma chloride measurement (moles/volume) 97 mmol/L 98-107 Carbon dioxide 30 mmol/L 21-32 Serum or plasma anion gap determination (moles/volume) 13 mmol/L 5-14 Serum or plasma urea nitrogen measurement (mass/volume ) 14 mg/dL 7-18 Serum or plasma creatinine measurement (mass/volume) 1.78 mg/dL 0.60-1.30 Serum or plasma urea nitrogen/creatinine mass ratio 8 NRG Serum or plasma creatinine measurement w ith calculation of estimated glomerular filtration rate 38 NRG Serum or plasma glucose measurement (mass/volume) 126 mg/dL 70-105 Serum or plasma calcium measurement (mass/volume) 10.0 mg/dL 8.5-10.1 Serum or plasma total bilirubin measurement (mass/volu me) 0.5 mg/dL 0.1-1.0 Serum or plasma alkaline phosphatase paula surement (enzymatic activity/volume) 76 U/L 40-136 Serum or plasma aspartate aminotransfera se measurement (enzymatic activity/volume) 22 U/L 5-34 Serum or plasma alanine aminotransferase measurement (enzymatic activity/volume) 17 U/L 0-55 Serum or plasma protein measurement (mass/volume) 8.1 g/dL 6.4-8.2 Serum or plasma albumin measurement (mass/volume) 4.6 g/dL 3.2-4.5 PT panel in platelet poor plasma by coag ulation assay - 10/10/19 19:10 Prothrombin time (PT) in platelet poor plasma by coagu lation assay 14.4 s 12.2-14.7 INR in platelet poor plasma or blood by coagulation as say 1.1 0.8-1.4 Activated partial thromboplastin time (a PTT) in platelet poor plasma bycoagulation assay - 10/10/19 19:10 Activated partial thromboplastin time (a PTT) in platelet poor plasma bycoagulation assay 34 s 24-35 Serum or plasma lithium measurement (mol es/volume) - 10/10/19 19:10 BNP PT 205.2 pg/mL <100.0 Serum or plasma troponin i.cardiac measu rement (mass/volume) - 10/10/19 19:10 Serum or plasma troponin i.cardiac measurement (mass/v olume) 0.039 ng/mL <0.028 Serum or plasma C reactive protein measu rement (mass/volume) - 10/10/19 19:10 Serum or plasma C reactive protein measurement (mass/v olume) 0.46 mg/dL 0.00-0.50 Bacterial blood culture - 10/10/19 19:10 Bacterial blood culture NG NRG Complete urinalysis with reflex to cultu re - 10/10/19 19:30 Urine color determination YELLOW NRG Urine clarity determination CLEAR NR G Urine pH measurement by test strip 6.0 5-9 Specific gravity of urine by test strip 1.020 1.016-1.022 Urine protein assay by test strip, semi-quantitative NEGATIVE NEGATIVE Urine glucose detection by automated test strip NE GATIVE NEGATIVE Erythrocytes detection in urine sediment by light micr oscopy NEGATIVE NEGATIVE Urine ketones detection by automated test strip NE GATIVE NEGATIVE Urine nitrite detection by test strip NEGATIVE NEGATIVE Urine total bilirubin detection by test strip NEGA TIVE NEGATIVE Urine urobilinogen measurement by automated test strip (mass/volume) 0.2 mg/dL < = 1.0 Urine leukocyte esterase detection by dipstick NEG ATIVE NEGATIVE Automated urine sediment erythrocyte cou nt by microscopy (number/high power field) NONE NRG Automated urine sediment leukocyte count by microscopy (number/high power field) NONE NRG Bacteria detection in urine sediment by light microsco py TRACE NRG Crystals detection in urine sediment by light microsco py NONE NRG Casts detection in urine sediment by light microscopy PRESENT NRG Mucus detection in urine sediment by light microscopy NEGATIVE NRG Complete urinalysis with reflex to culture NO NRG Hyaline casts detection in urine sediment by light ayaz roscopy 2-5 NRG Bacterial urine culture - 10/10/19 19:30 Bacterial urine culture NG NRG Arterial blood gas measurement - 0 19:33 Blood pCO2 35 mm[Hg] 35-45 Blood pO2 138 mm[Hg] 79-93 Arterial blood bicarbonate measurement (moles/volume) 29 mmol/L 23-27 Arterial blood base excess by calculation 5.8 mmol /L -2.5-2.5 Arterial blood oxygen saturation measurement 100 % 94-100 * Inhaled oxygen flow rate 3L NRG Arterial blood pH measurement with patient temperature correction 7.53 7.37-7.43 Arterial blood carbon dioxide, total measurement (mole s/volume) 30.1 mmol/L 21.0-31.0 Body site LEFT RADIAL NRG Assessment of wrist artery patency prior to arterial p uncture YES-POS NRG Setting of ventilation mode NO NR G Measurement of body temperature 97.1 NRG Blood lactic acid measurement (moles/vol ume) - 10/10/19 19:48 Blood lactic acid measurement (moles/volume) 1.27 mmol/L 0.50-2.00 Bacterial blood culture - 10/10/19 19:48 Bacterial blood culture NG NRG Complete blood count (CBC) with automate d white blood cell (WBC) differential - 10/11/19 03:26 Blood leukocytes automated count (number/volume) 11.9 10*3/uL 4.3-11.0 Blood erythrocytes automated count (number/volume) 4.03 10*6/uL 4.35-5.85 Venous blood hemoglobin measurement (mass/volume) 11.8 g/dL 13.3-17.7 Blood hematocrit (volume fraction) 37 % 40-54 Automated erythrocyte mean corpuscular volume 92 [ foz_us] 80-99 Automated erythrocyte mean corpuscular h emoglobin (mass per erythrocyte) 29 pg 25-34 Automated erythrocyte mean corpuscular h emoglobin concentration measurement (mass/volume) 32 g/dL 32-36 Automated erythrocyte distribution width ratio 14. 5 % 10.0- 14.5 Automated blood platelet count (count/volume) 267 10*3/uL 130-400 Automated blood platelet mean volume measurement 9.2 [foz_us] 7.4-10.4 Automated blood neutrophils/100 leukocytes 94 % 42-75 Automated blood lymphocytes/100 leukocytes 6 % 12-44 Blood monocytes/100 leukocytes 1 % 0-12 Automated blood eosinophils/100 leukocytes 0 % 0-10 Automated blood basophils/100 leukocytes 0 % 0-10 Blood neutrophils automated count (number/volume) 11.2 10*3 1.8-7.8 Blood lymphocytes automated count (number/volume) 0.7 10*3 1.0-4.0 Blood monocytes automated count (number/volume) 0. 1 10*3 0.0-1.0 Automated eosinophil count 0.0 10*3/uL 0 .0-0.3 Automated blood basophil count (count/volume) 0.0 10*3/uL 0.0-0.1 Comprehensive metabolic panel - 10/11/19 03:26 Serum or plasma sodium measurement (moles/volume) 138 mmol/L 135-145 Serum or plasma potassium measurement (moles/volume) 3.9 mmol/L 3.6-5.0 Serum or plasma chloride measurement (moles/volume) 97 mmol/L 98-107 Carbon dioxide 26 mmol/L 21-32 Serum or plasma anion gap determination (moles/volume) 15 mmol/L 5-14 Serum or plasma urea nitrogen measurement (mass/volume ) 17 mg/dL 7-18 Serum or plasma creatinine measurement (mass/volume) 1.78 mg/dL 0.60-1.30 Serum or plasma urea nitrogen/creatinine mass ratio 10 NRG Serum or plasma creatinine measurement w ith calculation of estimated glomerular filtration rate 38 NRG Serum or plasma glucose measurement (mass/volume) 186 mg/dL 70-105 Serum or plasma calcium measurement (mass/volume) 9.5 mg/dL 8.5-10.1 Serum or plasma total bilirubin measurement (mass/volu me) 0.4 mg/dL 0.1-1.0 Serum or plasma alkaline phosphatase paula surement (enzymatic activity/volume) 55 U/L 40-136 Serum or plasma aspartate aminotransfera se measurement (enzymatic activity/volume) 17 U/L 5-34 Serum or plasma alanine aminotransferase measurement (enzymatic activity/volume) 16 U/L 0-55 Serum or plasma protein measurement (mass/volume) 7.0 g/dL 6.4-8.2 Serum or plasma albumin measurement (mass/volume) 4.0 g/dL 3.2-4.5 CALCIUM CORRECTED 9.5 mg/dL 8.5-10.1 Serum or plasma troponin i.cardiac measu rement (mass/volume) - 10/11/19 03:26 Serum or plasma troponin i.cardiac measurement (mass/v olume) < ng/mL <0.028 Lipid 1996 panel - 10/11/19 03:26 Serum or plasma triglyceride measurement (mass/volume) 51 mg/dL <150 Serum or plasma cholesterol measurement (mass/volume) 109 mg/dL < 200 Serum or plasma cholesterol in HDL measurement (mass/v olume) 37 mg/dL 40-60 Cholesterol in LDL [mass/volume] in serum or plasma by direct assay 62 mg/dL 1-129 Serum or plasma cholesterol in VLDL measurement (mass/ volume) 10 mg/dL 5-40 Serum or plasma lithium measurement (mol es/volume) - 10/11/19 03:26 BNP PT 168.4 pg/mL <100.0 Capillary blood glucose measurement by g lucometer (mass/volume) - 10/11/19 05:24 Capillary blood glucose measurement by glucometer (mas s/volume) 226 mg/dL 70-110 Capillary blood glucose measurement by g lucometer (mass/volume) - 10/11/19 10:43 Capillary blood glucose measurement by glucometer (mas s/volume) 164 mg/dL 70-110 Capillary blood glucose measurement by g lucometer (mass/volume) - 10/11/19 16:10 Capillary blood glucose measurement by glucometer (mas s/volume) 177 mg/dL 70-110 Capillary blood glucose measurement by g lucometer (mass/volume) - 10/11/19 20:16 Capillary blood glucose measurement by glucometer (mas s/volume) 213 mg/dL 70-110 Automated blood complete blood count (he mogram) panel - 10/12/19 04:09 Blood leukocytes automated count (number/volume) 18.4 10*3/uL 4.3-11.0 Blood erythrocytes automated count (number/volume) 3.85 10*6/uL 4.35-5.85 Venous blood hemoglobin measurement (mass/volume) 11.2 g/dL 13.3-17.7 Blood hematocrit (volume fraction) 35 % 40-54 Automated erythrocyte mean corpuscular volume 92 [ foz_us] 80-99 Automated erythrocyte mean corpuscular h emoglobin (mass per erythrocyte) 29 pg 25-34 Automated erythrocyte mean corpuscular h emoglobin concentration measurement (mass/volume) 32 g/dL 32-36 Automated erythrocyte distribution width ratio 14. 5 % 10.0- 14.5 Automated blood platelet count (count/volume) 293 10*3/uL 130-400 Automated blood platelet mean volume measurement 9.5 [foz_us] 7.4-10.4 Comprehensive metabolic panel - 10/12/19 04:09 Serum or plasma sodium measurement (moles/volume) 139 mmol/L 135-145 Serum or plasma potassium measurement (moles/volume) 3.7 mmol/L 3.6-5.0 Serum or plasma chloride measurement (moles/volume) 94 mmol/L 98-107 Carbon dioxide 30 mmol/L 21-32 Serum or plasma anion gap determination (moles/volume) 15 mmol/L 5-14 Serum or plasma urea nitrogen measurement (mass/volume ) 30 mg/dL 7-18 Serum or plasma creatinine measurement (mass/volume) 1.88 mg/dL 0.60-1.30 Serum or plasma urea nitrogen/creatinine mass ratio 16 NRG Serum or plasma creatinine measurement w ith calculation of estimated glomerular filtration rate 36 NRG Serum or plasma glucose measurement (mass/volume) 113 mg/dL 70-105 Serum or plasma calcium measurement (mass/volume) 9.3 mg/dL 8.5-10.1 Serum or plasma total bilirubin measurement (mass/volu me) 0.3 mg/dL 0.1-1.0 Serum or plasma alkaline phosphatase paula surement (enzymatic activity/volume) 52 U/L 40-136 Serum or plasma aspartate aminotransfera se measurement (enzymatic activity/volume) 16 U/L 5-34 Serum or plasma alanine aminotransferase measurement (enzymatic activity/volume) 17 U/L 0-55 Serum or plasma protein measurement (mass/volume) 6.8 g/dL 6.4-8.2 Serum or plasma albumin measurement (mass/volume) 4.0 g/dL 3.2-4.5 CALCIUM CORRECTED 9.3 mg/dL 8.5-10.1 Capillary blood glucose measurement by g lucometer (mass/volume) - 10/12/19 05:24 Capillary blood glucose measurement by glucometer (mas s/volume) 115 mg/dL 70-110 Capillary blood glucose measurement by g lucometer (mass/volume) - 10/12/19 12:03 Capillary blood glucose measurement by glucometer (mas s/volume) 131 mg/dL 70-110 Comprehensive metabolic panel - 11/03/19 13:00 Serum or plasma sodium measurement (moles/volume) 136 mmol/L 135-145 Serum or plasma potassium measurement (moles/volume) 3.4 mmol/L 3.6-5.0 Serum or plasma chloride measurement (moles/volume) 92 mmol/L 98-107 Carbon dioxide 32 mmol/L 21-32 Serum or plasma anion gap determination (moles/volume) 12 mmol/L 5-14 Serum or plasma urea nitrogen measurement (mass/volume ) 25 mg/dL 7-18 Serum or plasma creatinine measurement (mass/volume) 1.96 mg/dL 0.60-1.30 Serum or plasma urea nitrogen/creatinine mass ratio 13 NRG Serum or plasma creatinine measurement w ith calculation of estimated glomerular filtration rate 34 NRG Serum or plasma glucose measurement (mass/volume) 127 mg/dL 70-105 Serum or plasma calcium measurement (mass/volume) 9.9 mg/dL 8.5-10.1 Serum or plasma total bilirubin measurement (mass/volu me) 0.4 mg/dL 0.1-1.0 Serum or plasma alkaline phosphatase paula surement (enzymatic activity/volume) 75 U/L 40-136 Serum or plasma aspartate aminotransfera se measurement (enzymatic activity/volume) 27 U/L 5-34 Serum or plasma alanine aminotransferase measurement (enzymatic activity/volume) 30 U/L 0-55 Serum or plasma protein measurement (mass/volume) 7.6 g/dL 6.4-8.2 Serum or plasma albumin measurement (mass/volume) 3.6 g/dL 3.2-4.5 CALCIUM CORRECTED 10.2 mg/dL 8.5-10.1 PT panel in platelet poor plasma by coag ulation assay - 11/03/19 13:00 Prothrombin time (PT) in platelet poor plasma by coagu lation assay 15.1 s 12.2-14.7 INR in platelet poor plasma or blood by coagulation as say 1.1 0.8-1.4 Activated partial thromboplastin time (a PTT) in platelet poor plasma bycoagulation assay - 11/03/19 13:00 Activated partial thromboplastin time (a PTT) in platelet poor plasma bycoagulation assay 40 s 24-35 Fibrin D-dimer FEU measurement in platel et poor plasma (mass/volume) - 11/03/19 13:00 Fibrin D-dimer FEU measurement in platelet poor plasma (mass/volume) 0.47 ug/mL 0.00-0.49 Blood lactic acid measurement (moles/vol ume) - 11/03/19 13:00 Blood lactic acid measurement (moles/volume) 1.62 mmol/L 0.50-2.00 Serum ragweed IgE antibody assay - 11/02 13:00 Serum ragweed IgE antibody assay 333 U/L 125-220 Complete blood count (CBC) with automate d white blood cell (WBC) differential - 11/03/19 13:00 Blood leukocytes automated count (number/volume) 17.6 10*3/uL 4.3-11.0 Blood erythrocytes automated count (number/volume) 4.01 10*6/uL 4.35-5.85 Venous blood hemoglobin measurement (mass/volume) 11.5 g/dL 13.3-17.7 Blood hematocrit (volume fraction) 37 % 40-54 Automated erythrocyte mean corpuscular volume 93 [ foz_us] 80-99 Automated erythrocyte mean corpuscular h emoglobin (mass per erythrocyte) 29 pg 25-34 Automated erythrocyte mean corpuscular h emoglobin concentration measurement (mass/volume) 31 g/dL 32-36 Automated erythrocyte distribution width ratio 15. 0 % 10.0- 14.5 Automated blood platelet count (count/volume) 243 10*3/uL 130-400 Automated blood platelet mean volume measurement 9.1 [foz_us] 7.4-10.4 Automated blood neutrophils/100 leukocytes 92 % 42-75 Automated blood lymphocytes/100 leukocytes 4 % 12-44 Blood monocytes/100 leukocytes 4 % 0-12 Automated blood eosinophils/100 leukocytes 0 % 0-10 Automated blood basophils/100 leukocytes 0 % 0-10 Blood neutrophils automated count (number/volume) 16.2 10*3 1.8-7.8 Blood lymphocytes automated count (number/volume) 0.7 10*3 1.0-4.0 Blood monocytes automated count (number/volume) 0. 7 10*3 0.0-1.0 Automated eosinophil count 0.0 10*3/uL 0 .0-0.3 Automated blood basophil count (count/volume) 0.0 10*3/uL 0.0-0.1 Manual absolute plasma cell count - 10/21 10/09 13:00 Blood monocytes/100 leukocytes 6 % NRG Manual blood segmented neutrophils/100 leukocytes 87 % NRG Blood band neutrophils/100 leukocytes 2 % NRG Manual blood lymphocytes/100 leukocytes 5 % NRG Manual eosinophils/100 leukocytes in nose 0 % NRG Manual blood basophils/100 leukocytes 0 % NRG Blood erythrocyte morphology finding identification NORMAL NRG PROCALCITONIN (PCT) - 11/03/19 13:00 PROCALCITONIN (PCT) 7.86 ng/mL <0.10 Serum or plasma troponin i.cardiac measu rement (mass/volume) - 11/03/19 13:00 Serum or plasma troponin i.cardiac measurement (mass/v olume) 0.069 ng/mL <0.028 Serum or plasma lithium measurement (mol es/volume) - 11/03/19 13:00 BNP PT 298.6 pg/mL <100.0 Erythrocyte sedimentation rate by reyna gren method - 11/03/19 13:00 Erythrocyte sedimentation rate by westergren method 57 mm 0- 30 Serum or plasma C reactive protein measu rement (mass/volume) - 11/03/19 13:00 Serum or plasma C reactive protein measurement (mass/v olume) 26.18 mg/dL 0.00-0.50 Bacterial blood culture - 11/03/19 13:00 Bacterial blood culture NG NRG Complete urinalysis with reflex to cultu re - 11/03/19 13:25 Urine color determination YELLOW NRG Urine clarity determination CLEAR NR G Urine pH measurement by test strip 5.5 5-9 Specific gravity of urine by test strip 1.015 1.016-1.022 Urine protein assay by test strip, semi-quantitative TRACE NEGATIVE Urine glucose detection by automated test strip NE GATIVE NEGATIVE Erythrocytes detection in urine sediment by light micr oscopy 1+ NEGATIVE Urine ketones detection by automated test strip NE GATIVE NEGATIVE Urine nitrite detection by test strip NEGATIVE NEGATIVE Urine total bilirubin detection by test strip NEGA TIVE NEGATIVE Urine urobilinogen measurement by automated test strip (mass/volume) 0.2 mg/dL < = 1.0 Urine leukocyte esterase detection by dipstick NEG ATIVE NEGATIVE Automated urine sediment erythrocyte cou nt by microscopy (number/high power field) [HPF] NRG Automated urine sediment leukocyte count by microscopy (number/high power field) NONE NRG Bacteria detection in urine sediment by light microsco py NEGATIVE NRG Squamous epithelial cells detection in u rine sediment by light microscopy NONE NRG Crystals detection in urine sediment by light microsco py NONE NRG Casts detection in urine sediment by light microscopy PRESENT NRG Mucus detection in urine sediment by light microscopy NEGATIVE NRG Complete urinalysis with reflex to culture CULTURE PENDING NRG Hyaline casts detection in urine sediment by light ayaz roscopy 2-5 NRG Bacterial urine culture - 11/03/19 13:25 Bacterial urine culture NG NRG Bacterial blood culture - 11/03/19 13:40 Bacterial blood culture NG NRG Capillary blood glucose measurement by g lucometer (mass/volume) - 11/03/19 20:28 Capillary blood glucose measurement by glucometer (mas s/volume) 267 mg/dL 70-110 Complete blood count (CBC) with automate d white blood cell (WBC) differential - 11/04/19 04:28 Blood leukocytes automated count (number/volume) 13.0 10*3/uL 4.3-11.0 Blood erythrocytes automated count (number/volume) 3.46 10*6/uL 4.35-5.85 Venous blood hemoglobin measurement (mass/volume) 10.1 g/dL 13.3-17.7 Blood hematocrit (volume fraction) 32 % 40-54 Automated erythrocyte mean corpuscular volume 93 [ foz_us] 80-99 Automated erythrocyte mean corpuscular h emoglobin (mass per erythrocyte) 29 pg 25-34 Automated erythrocyte mean corpuscular h emoglobin concentration measurement (mass/volume) 32 g/dL 32-36 Automated erythrocyte distribution width ratio 14. 8 % 10.0- 14.5 Automated blood platelet count (count/volume) 229 10*3/uL 130-400 Automated blood platelet mean volume measurement 9.5 [foz_us] 7.4-10.4 Automated blood neutrophils/100 leukocytes 93 % 42-75 Automated blood lymphocytes/100 leukocytes 5 % 12-44 Blood monocytes/100 leukocytes 2 % 0-12 Automated blood eosinophils/100 leukocytes 0 % 0-10 Automated blood basophils/100 leukocytes 0 % 0-10 Blood neutrophils automated count (number/volume) 12.1 10*3 1.8-7.8 Blood lymphocytes automated count (number/volume) 0.6 10*3 1.0-4.0 Blood monocytes automated count (number/volume) 0. 3 10*3 0.0-1.0 Automated eosinophil count 0.0 10*3/uL 0 .0-0.3 Automated blood basophil count (count/volume) 0.0 10*3/uL 0.0-0.1 Comprehensive metabolic panel - 11/04/19 04:28 Serum or plasma sodium measurement (moles/volume) 137 mmol/L 135-145 Serum or plasma potassium measurement (moles/volume) 3.1 mmol/L 3.6-5.0 Serum or plasma chloride measurement (moles/volume) 94 mmol/L 98-107 Carbon dioxide 29 mmol/L 21-32 Serum or plasma anion gap determination (moles/volume) 14 mmol/L 5-14 Serum or plasma urea nitrogen measurement (mass/volume ) 27 mg/dL 7-18 Serum or plasma creatinine measurement (mass/volume) 1.80 mg/dL 0.60-1.30 Serum or plasma urea nitrogen/creatinine mass ratio 15 NRG Serum or plasma creatinine measurement w ith calculation of estimated glomerular filtration rate 37 NRG Serum or plasma glucose measurement (mass/volume) 158 mg/dL 70-105 Serum or plasma calcium measurement (mass/volume) 9.5 mg/dL 8.5-10.1 Serum or plasma total bilirubin measurement (mass/volu me) 0.3 mg/dL 0.1-1.0 Serum or plasma alkaline phosphatase paula surement (enzymatic activity/volume) 73 U/L 40-136 Serum or plasma aspartate aminotransfera se measurement (enzymatic activity/volume) 21 U/L 5-34 Serum or plasma alanine aminotransferase measurement (enzymatic activity/volume) 26 U/L 0-55 Serum or plasma protein measurement (mass/volume) 6.6 g/dL 6.4-8.2 Serum or plasma albumin measurement (mass/volume) 3.3 g/dL 3.2-4.5 CALCIUM CORRECTED 10.1 mg/dL 8.5-10.1 PROCALCITONIN (PCT) - 11/04/19 04:28 PROCALCITONIN (PCT) 5.08 ng/mL <0.10 Capillary blood glucose measurement by g lucometer (mass/volume) - 11/04/19 11:08 Capillary blood glucose measurement by glucometer (mas s/volume) 174 mg/dL 70-110 Capillary blood glucose measurement by g lucometer (mass/volume) - 11/04/19 15:53 Capillary blood glucose measurement by glucometer (mas s/volume) 212 mg/dL 70-110 Capillary blood glucose measurement by g lucometer (mass/volume) - 11/04/19 20:21 Capillary blood glucose measurement by glucometer (mas s/volume) 175 mg/dL 70-110 Complete blood count (CBC) with automate d white blood cell (WBC) differential - 11/05/19 05:05 Blood leukocytes automated count (number/volume) 13.9 10*3/uL 4.3-11.0 Blood erythrocytes automated count (number/volume) 3.57 10*6/uL 4.35-5.85 Venous blood hemoglobin measurement (mass/volume) 10.3 g/dL 13.3-17.7 Blood hematocrit (volume fraction) 33 % 40-54 Automated erythrocyte mean corpuscular volume 93 [ foz_us] 80-99 Automated erythrocyte mean corpuscular h emoglobin (mass per erythrocyte) 29 pg 25-34 Automated erythrocyte mean corpuscular h emoglobin concentration measurement (mass/volume) 31 g/dL 32-36 Automated erythrocyte distribution width ratio 14. 8 % 10.0- 14.5 Automated blood platelet count (count/volume) 274 10*3/uL 130-400 Automated blood platelet mean volume measurement 9.4 [foz_us] 7.4-10.4 Automated blood neutrophils/100 leukocytes 86 % 42-75 Automated blood lymphocytes/100 leukocytes 7 % 12-44 Blood monocytes/100 leukocytes 7 % 0-12 Automated blood eosinophils/100 leukocytes 0 % 0-10 Automated blood basophils/100 leukocytes 0 % 0-10 Blood neutrophils automated count (number/volume) 12.0 10*3 1.8-7.8 Blood lymphocytes automated count (number/volume) 1.0 10*3 1.0-4.0 Blood monocytes automated count (number/volume) 0. 9 10*3 0.0-1.0 Automated eosinophil count 0.0 10*3/uL 0 .0-0.3 Automated blood basophil count (count/volume) 0.0 10*3/uL 0.0-0.1 Whole blood basic metabolic panel - 10/21 12/09 05:05 Serum or plasma sodium measurement (moles/volume) 139 mmol/L 135-145 Serum or plasma potassium measurement (moles/volume) 3.1 mmol/L 3.6-5.0 Serum or plasma chloride measurement (moles/volume) 95 mmol/L 98-107 Carbon dioxide 31 mmol/L 21-32 Serum or plasma anion gap determination (moles/volume) 13 mmol/L 5-14 Serum or plasma urea nitrogen measurement (mass/volume ) 36 mg/dL 7-18 Serum or plasma creatinine measurement (mass/volume) 1.70 mg/dL 0.60-1.30 Serum or plasma urea nitrogen/creatinine mass ratio 21 NRG Serum or plasma creatinine measurement w ith calculation of estimated glomerular filtration rate 40 NRG Serum or plasma glucose measurement (mass/volume) 130 mg/dL 70-105 Serum or plasma calcium measurement (mass/volume) 9.4 mg/dL 8.5-10.1 Magnesium - 11/05/19 05:05 Magnesium 2.0 mg/dL 1.6-2.4 Encounters ACCT No. Visit Date/Time Discharge Status Pt. Type Provider Facility Loc./Unit Complaint [id number] 11/03/2019 14:38:00 020 11:35:00 DIS Outpatient PHUC WASHINGTON MD [facility] 4TH R MIDDLE LOBE PNEUMONIA ;COPD [id number] 10/10/2019 20:55:00 020 14:00:00 DIS Inpatient PHUC WASHINGTON MD [facility] 4TH ATYPICAL ANGINA,CHF EXA CERBATION [id number] 09/14/2017 10:48:00 018 23:59:59 CLS Outpatient LISA HEATON APRN [facility] CARD SUPRAVENTRICULA R TACHYCARDIA I47.11
[2019-11-10 11:22] LABS: BASOPHILS % (AUTO) 0 % (0-10); EOSINOPHILS # (AUTO) 0.1 10^3/uL (0.0-0.3); EOSINOPHILS % (AUTO) 0 % (0-10); HEMATOCRIT 42 % (40-54); LYMPHOCYTES # (AUTO) 1.6 X 10^3 (1.0-4.0); LYMPHOCYTES % (AUTO) 6 % (12-44); MEAN CORPUSCULAR HEMOGLOBIN 29 PG (25-34); MEAN CORPUSCULAR HGB CONC 31 G/DL (32-36); MEAN CORPUSCULAR VOLUME 95 FL (80-99); MEAN PLATELET VOLUME 9.5 FL (7.4-10.4); MONOCYTES # (AUTO) 1.1 X 10^3 (0.0-1.0); MONOCYTES % (AUTO) 4 % (0-12); NEUTROPHILS # (AUTO) 23.7 X 10^3 (1.8-7.8); NEUTROPHILS % (AUTO) 89 % (42-75); PLATELET COUNT 464 10^3/uL (130-400); RED CELL DISTRIBUTION WIDTH 15.1 % (10.0-14.5); WHITE BLOOD COUNT 26.5 10^3/uL (4.3-11.0)
[2019-11-10 11:35] LABS: ALBUMIN 3.9 GM/DL (3.2-4.5)
[2019-11-10 11:36] LABS: POTASSIUM 3.6 MMOL/L (3.6-5.0)
[2019-11-10 11:38] LABS: TOTAL PROTEIN 7.3 GM/DL (6.4-8.2)
[2019-11-10 11:40] LABS: BILIRUBIN,TOTAL 0.4 MG/DL (0.1-1.0)
[2019-11-10] MEDS: MAGNESIUM 1 GM/100 ML IVPB 100 ML IV SCH ×2 (11:40→14:33)
[2019-11-10 11:42] LABS: CREATININE SERUM 1.59 MG/DL (0.60-1.30)
[2019-11-10 11:50] LABS: ANISOCYTOSIS SLIGHT; BAND NEUTROPHILS 1 %; BASOPHILS % (MANUAL) 0 %; EOSINOPHILS % (MANUAL) 0 %; LYMPHOCYTES % (MANUAL) 5 %; MONOCYTES % (MANUAL) 4 %; MYELOCYTES % 1 %; NEUTROPHILS % (MANUAL) 89 %
[2019-11-10] MEDS: NS IV 500 ML 500 ML IV ONE ×2 (12:20→14:13)
[2019-11-10] MEDS ORDERED: LEVOFLOXACIN 500 MG/100 ML IV 100 ML IV ONE (12:45)
--- NOTE | 2019-11-10 13:40 | Diagnostic Imaging Report ---
INDICATION: Positive for COVID. Shortness of air. EXAMINATION: 2 view chest 11/10/2019./ COMPARISON: 11/03/2019 FINDINGS: 2 views of the chest redemonstrate a patchy airspace opacity in the right mid to lower lung. The lungs are better aerated on today's examination. Linear markings bilaterally likely chronic in nature. No effusions. No pneumothorax. The heart is stable. The pulmonary vasculature and the heart unchanged. There is a left-sided pacemaker stable in appearance. IMPRESSION: 1. Persistent to slightly more consolidated infiltrate in the right mid to lower lung continued, followup recommended. Remaining findings appear chronic. Dictated by: Dictated on workstation # [id number]
[2019-11-10] MEDS ORDERED: NS (IVPB) 250 ML IV ONE (14:00)
[2019-11-10] MEDS ORDERED: DOXY100T2 PO (14:05)
[2019-11-10] MEDS ORDERED: NS IV 1000 ML 1,000 ML IV SCH (14:15)
[2019-11-10 14:56] VITALS: BP 121/67
== END 2019-11-10 14:55 | disposition home or self-care (01) ==
LOC: EDUNIT# 10:51 → ER 10:52
DX: J44.0 Chronic obstructive pulmonary disease with (acute) lower respiratory infection (principal); J18.9 Pneumonia, unspecified organism; I10 Essential (primary) hypertension; I25.10 Atherosclerotic heart disease of native coronary artery without angina pectoris; E11.9 Type 2 diabetes mellitus without complications; Z88.0 Allergy status to penicillin; Z88.8 Allergy status to other drugs, medicaments and biological substances; Z99.81 Dependence on supplemental oxygen; Z95.810 Presence of automatic (implantable) cardiac defibrillator; Z87.891 Personal history of nicotine dependence; Z79.84 Long term (current) use of oral hypoglycemic drugs; Z79.899 Other long term (current) drug therapy
CPT/HCPCS: 36415; 71046; 80053; 83880; 84484; 85007; 85027; 93005

== ENCOUNTER 2021-01-27 11:11 | Outpatient (RCR) | payer OTHER ==
[~2021-01-27 11:11] MED LIST changes: +ASPI-1238 PO; -CAPS42.513 TP; +CAPS42.514 TP; -CETI10TA21 PO; +CETI10TA49 PO; +DOXY100T2 PO; +FERR324T22 PO; -FERR325T17 PO; -ISOS30TA3 PO; +ISOS30TA82 PO; -PANT40TA3 PO; +PANT40TA52 PO; +TMSL.4C PO
== END 2021-02-22 | disposition home or self-care (01) ==
LOC: ONC 11:11
PROVIDERS: ATTEND Radiology Radiation Oncology
DX: Z51.0 Encounter for antineoplastic radiation therapy (principal); C32.0 Malignant neoplasm of glottis; I25.10 Atherosclerotic heart disease of native coronary artery without angina pectoris; I48.91 Unspecified atrial fibrillation; E78.00 Pure hypercholesterolemia, unspecified; I13.0 Hypertensive heart and chronic kidney disease with heart failure and stage 1 through stage 4 chronic kidney disease, or unspecified chronic kidney disease; N18.4 Chronic kidney disease, stage 4 (severe); I50.9 Heart failure, unspecified; E11.22 Type 2 diabetes mellitus with diabetic chronic kidney disease; J43.9 Emphysema, unspecified; K21.9 Gastro-esophageal reflux disease without esophagitis; G47.33 Obstructive sleep apnea (adult) (pediatric); I25.2 Old myocardial infarction; Z85.828 Personal history of other malignant neoplasm of skin; Z95.810 Presence of automatic (implantable) cardiac defibrillator; Z95.5 Presence of coronary angioplasty implant and graft; Z87.891 Personal history of nicotine dependence; Z79.899 Other long term (current) drug therapy
CPT/HCPCS: 77280; 77290; 77295; 77300; 77307; 77334; 77336; 77417; 99204

== ENCOUNTER 2021-03-10 10:46 | Outpatient (RCR) | payer OTHER | END 2021-06-08 | disposition home or self-care (01) | LOC: ONC 10:46 | PROVIDERS: ATTEND Radiology Radiation Oncology | DX: C32.0 Malignant neoplasm of glottis (principal); I25.10 Atherosclerotic heart disease of native coronary artery without angina pectoris; I10 Essential (primary) hypertension; E78.00 Pure hypercholesterolemia, unspecified; J44.9 Chronic obstructive pulmonary disease, unspecified; E11.22 Type 2 diabetes mellitus with diabetic chronic kidney disease; G47.33 Obstructive sleep apnea (adult) (pediatric) | CPT/HCPCS: 99213 ==